=== PATIENT | female | born 1965 | race Caucasian/White ===

== ENCOUNTER → 2017-06-05 | Outpatient (CLI) | payer BC ==
--- NOTE | 2017-06-06 10:57 | MM ---
Reason for exam: screening (asymptomatic). Last mammogram was performed 1 year and 1 month ago. Physical Findings: A clinical breast exam by your physician is recommended on an annual basis and results should be correlated with mammographic findings. MG Screening Mammo w CAD Bilateral CC and MLO view(s) were taken. Prior study comparison: May 20, 2016, bilateral MG screening mammo w CAD. April 13, 2015, bilateral MG screening mammo w CAD. The breast tissue is almost entirely fat. Chronic stable scattered calcifications in the left breast. There is chronic nodularity in the left breast. No significant changes when compared with prior studies. ASSESSMENT: Benign, BI-RAD 2 RECOMMENDATION: Routine screening mammogram of both breasts in 1 year.
== END | disposition home or self-care (01) ==
LOC: RADMAMWWP 16:00
PROVIDERS: ATTEND Family Medicine
DX: Z12.31 Encounter for screening mammogram for malignant neoplasm of breast (principal)

== ENCOUNTER 2018-08-18 17:24 | Emergency (ER) | payer BC ==
[2018-08-18 17:29] VITALS: RESP 18
--- NOTE | 2018-08-18 18:37 | ED ---
General Adult HPI - General Chief complaint: ENT Stated complaint: ear pain Time Seen by Provider: 08/18/18 17:36 Source: patient, RN notes reviewed Mode of arrival: ambulatory Limitations: no limitations - History of Present Illness Initial comments: 53-year-old female presents to the emergency department for a chief complaint of left ear pain times one day. Patient states it started this morning and has worsened throughout the day. She describes it as a sharp pain in her left ear. Patient denies any tooth pain. She denies any sore throat. She denies any pain or swelling under the tongue. Patient denies any fevers or chills at home. She denies any congestion. Patient admits it is worsened with opening and closing her jaw. She denies any history of TMJ. Patient denies smoking. Patient is unsure what makes the pain better or worse. Patient has no other complaints at this time including shortness of breath, chest pain, abdominal pain, nausea or vomiting, headache, or visual changes. - Related Data Home Medications Medication Instructions Recorded Confirmed Furosemide 20 mg PO DAILY 06/26/15 06/26/15 Previous Rx's Medication Instructions Recorded Hydrocodone/Acetaminophen [Chelsea 1 each PO Q6HR PRN #20 tab 06/26/15 5-325] Acetaminophen-Codeine 300-30mg 1 tab PO Q8H PRN #10 tablet 08/18/18 [Tylenol #3] Allergies Allergy/AdvReac Type Severity Reaction Status Date / Time No Known Allergies Allergy Verified 08/18/18 17:28 Review of Systems ROS Statement: Those systems with pertinent positive or pertinent negative responses have been documented in the HPI. ROS Other: All systems not noted in ROS Statement are negative. Past Medical History Past Medical History: Diabetes Mellitus History of Any Multi-Drug Resistant Organisms: None Reported Past Surgical History: Cholecystectomy, Orthopedic Surgery, Tubal Ligation Additional Past Surgical History / Comment(s): left knee, left foot Past Psychological History: No Psychological Hx Reported Smoking Status: Former smoker Past Alcohol Use History: None Reported Past Drug Use History: None Reported General Exam Limitations: no limitations General appearance: alert, in no apparent distress Head exam: Present: atraumatic, normocephalic, normal inspection Eye exam: Present: normal appearance, PERRL, EOMI. Absent: scleral icterus, conjunctival injection, periorbital swelling ENT exam: Present: normal exam, normal oropharynx (No tenderness of the maxillary sinuses), mucous membranes moist, TM's normal bilaterally (Tympanic membranes normal bilaterally. No erythema, opacification, or bulging noted.), normal external ear exam (No tenderness to palpation of the tragus or pinna.), other (No tenderness of the parotid gland. Patient does have mild tenderness to the TMJ joint.) Neck exam: Present: normal inspection, full ROM. Absent: tenderness, meningismus, lymphadenopathy Respiratory exam: Present: normal lung sounds bilaterally. Absent: respiratory distress, wheezes, rales, rhonchi, stridor Cardiovascular Exam: Present: regular rate, normal rhythm, normal heart sounds. Absent: bradycardia, tachycardia, irregular rhythm Neurological exam: Present: alert, oriented X3, CN II-XII intact Psychiatric exam: Present: normal affect, normal mood Course Vital Signs 08/18/18 17:26 Temperature 98.3 F Pulse Rate 93 Respiratory 18 Rate Blood Pressure 151/85 O2 Sat by Pulse 96 Oximetry Medical Decision Making - Medical Decision Making 53-year-old female presents to the emergency department for a chief complaint of left ear pain times one day. Patient states it started this morning and then worsened in the day. She describes it as a sharp pain of the inner ear. Patient states his pain is worsened with opening and closing of her jaw. She denies congestion, fevers, sore throat. On exam patient has tenderness to the TMJ joint. No tenderness to the parotid gland. No evidence of pharyngitis, uvula midline, no evidence of peritonsillar abscess. Patient denies sore throat. No tenderness of anterior cervical lymph nodes. No tenderness with palpation and traction of the pinna and tragus. Left tympanic membrane is nonerythematous with no opacification or bulging noted. As patient does have tenderness of the TMJ joint as well as pain with opening and closing of the jaw it is likely that she has TMJ dysfunction. She was given pain medication for this. She was educated she can also take Motrin. She will follow up with primary care and ENT on Monday. She will return here if she has any worsening symptoms or fevers which she is aware of. Disposition Clinical Impression: Ear pain, left Disposition: HOME SELF-CARE Condition: Good Instructions: Temporomandibular Disorder (ED), Earache (ED) Additional Instructions: Please take pain medication as directed. Please monitor for any worsening symptoms or fevers and return if these occur. Otherwise follow-up with ENT on Monday. Prescriptions: Acetaminophen-Codeine 300-30mg [Tylenol #3] 1 tab PO Q8H PRN #10 tablet PRN Reason: Pain Is patient prescribed a controlled substance at d/c from ED?: No Referrals: Campbell Scott Jr, DO [Primary Care Provider] - 1-2 days Dave oMreira DO [Doctor of Osteopathic Medicine] - 1-2 days Time of Disposition: 18:35
[2018-08-18] MEDS ORDERED: ACET/COD 300 MG/30 MG STARTER PACK 6 TAB BTL PO STA (18:52)
[2018-08-18 18:58] VITALS: BP 131/81; PULSE 70; TEMP 98.2
== END 2018-08-18 18:57 | disposition home or self-care (01) ==
LOC: EC 17:24
DX: H92.02 Otalgia, left ear (principal); M26.629 Arthralgia of temporomandibular joint, unspecified side; Z87.891 Personal history of nicotine dependence; Z79.899 Other long term (current) drug therapy
CPT/HCPCS: 99282

== ENCOUNTER → 2018-09-12 | Outpatient (CLI) | payer BC ==
[2018-09-12 07:45] LABS: Basophils % (A) 0 %; Eosinophils # (A) 0.2 k/uL (0-0.7); Eosinophils % (A) 2 %; HGB 13.2 gm/dL (11.4-16.0); Lymphocytes # (A) 1.8 k/uL (1.0-4.8); Lymphocytes % (A) 28 %; MCH 31.6 pg (25.0-35.0); MCHC 33.8 g/dL (31.0-37.0); MCV 93.7 fL (80.0-100.0); Mean Platelet Volume 6.4; Monocytes # (A) 0.3 k/uL (0-1.0); Monocytes % (A) 5 %; Neutrophils # (A) 4.1 k/uL (1.3-7.7); Neutrophils % (A) 64 %; Platelet Count 236 k/uL (150-450); RBC 4.16 m/uL (3.80-5.40); RDW 13.7 % (11.5-15.5); WBC 6.4 k/uL (3.8-10.6)
[2018-09-12 11:10] LABS: Albumin 4.2 g/dL (3.80-4.90); Albumin/Globulin Ratio 2.1 (1.20-2.10); Anion Gap 8.7 mmol/L (4.00-12.00); Calcium 9.3 mg/dL (8.7-10.3); Carbon Dioxide 23.3 mmol/L (21.6-31.8); Potassium 4.2 mmol/L (3.5-5.5); Total Bilirubin 0.6 mg/dL (0.3-1.2); Total Protein 6.2 g/dL (6.2-8.2)
[2018-09-12 11:19] LABS: T4, Free (Free Thyroxine) 1.2 ng/dL (0.80-1.80)
[2018-09-12 13:14] LABS: Hemoglobin A1C 9.9 % (4.0-6.0)
== END ==
LOC: LABWHC1 06:35
PROVIDERS: ATTEND Nurse Practitioner Women's Health
DX: Z00.00 Encounter for general adult medical examination without abnormal findings (principal); I10 Essential (primary) hypertension; E11.9 Type 2 diabetes mellitus without complications; Z79.899 Other long term (current) drug therapy
CPT/HCPCS: 36415; 80053; 80061; 83036; 84439; 84443; 85025

== ENCOUNTER → 2018-11-20 | Outpatient (CLI) | payer BC ==
--- NOTE | 2018-11-22 09:55 | MM ---
Reason for exam: screening (asymptomatic). Last mammogram was performed 1 year and 5 months ago. Physical Findings: A clinical breast exam by your physician is recommended on an annual basis and results should be correlated with mammographic findings. MG Screening Mammo w CAD Bilateral CC and MLO view(s) were taken. Prior study comparison: June 05, 2017, bilateral MG screening mammo w CAD. May 20, 2016, bilateral MG screening mammo w CAD. The breast tissue is almost entirely fat. No significant changes when compared with prior studies. ASSESSMENT: Negative, BI-RAD 1 RECOMMENDATION: Routine screening mammogram of both breasts in 1 year.
== END | disposition home or self-care (01) ==
LOC: RADMAMWWP 16:01
PROVIDERS: ATTEND Family Medicine
DX: Z12.31 Encounter for screening mammogram for malignant neoplasm of breast (principal)
CPT/HCPCS: 77067

== ENCOUNTER → 2021-03-01 | Outpatient (CLI) | payer BC ==
--- NOTE | 2021-03-02 11:03 | MM ---
Reason for exam: screening (asymptomatic). Last mammogram was performed 2 years and 3 months ago. History: Patient is postmenopausal. Physical Findings: A clinical breast exam by your physician is recommended on an annual basis and results should be correlated with mammographic findings. MG Screening Mammo w CAD Bilateral CC and MLO view(s) were taken. Prior study comparison: November 20, 2018, bilateral MG screening mammo w CAD. June 05, 2017, bilateral MG screening mammo w CAD. The breast tissue is almost entirely fat. There are benign appearing round calcifications bilaterally. There is no discrete abnormality. ASSESSMENT: Benign, BI-RAD 2 RECOMMENDATION: Routine screening mammogram of both breasts in 1 year.
== END | disposition home or self-care (01) ==
LOC: RADMAMWWP 16:01
PROVIDERS: ATTEND Family Medicine
DX: Z12.31 Encounter for screening mammogram for malignant neoplasm of breast (principal); Z78.0 Asymptomatic menopausal state
CPT/HCPCS: 77067

== ENCOUNTER → 2022-03-22 | Outpatient (CLI) | payer BC ==
--- NOTE | 2022-03-23 09:20 | MM ---
Reason for Exam: Screening (asymptomatic). Last mammogram was performed 1 year(s) and 1 month(s) ago. Patient History: Menarche at age 11. First Full-Term at age 21. Postmenopausal. Risk Values: Dolores 5 year model risk: 1.3%. NCI Lifetime model risk: 7.7%. Prior Study Comparison: 06/05/2017 Bilateral Screening Mammogram, [facility]. 11/20/2018 Bilateral Screening Mammogram, [facility]. 03/01/2021 Bilateral Screening Mammogram, [facility]. Tissue Density: The breast tissue is almost entirely fat. Findings: Analyzed By CAD. There is no suspicious group of microcalcifications or new suspicious mass in either breast. Scattered benign calcifications noted. Overall Assessment: Benign, BI-RAD 2 Management: Screening Mammogram of both breasts in 1 year. A clinical breast exam by your physician is recommended on an annual basis and results should be correlated with mammographic findings. Electronically signed and approved by: Archie Petit M.D. Radiologis
== END | disposition home or self-care (01) ==
LOC: RADMAMWWP 07:39
PROVIDERS: ATTEND Family Medicine
DX: Z12.31 Encounter for screening mammogram for malignant neoplasm of breast (principal); Z78.0 Asymptomatic menopausal state
CPT/HCPCS: 77067

== ENCOUNTER → 2023-10-14 | Outpatient (CLI) | payer BC ==
--- NOTE | 2023-10-15 23:12 | MR ---
EXAMINATION TYPE: MR shoulder LT wo con DATE OF EXAM: 10/14/2023 COMPARISON: Left shoulder radiograph 10/11/2023 HISTORY: Left shoulder pain, limited ROM x 3 mos, no trauma. TECHNIQUE: Multiplanar, multisequence imaging of the left shoulder is performed without contrast. FINDINGS: SUPRASPINATUS: Slight bursal sided fraying of the supraspinatus superimposed on tendinosis. INFRASPINATUS: Intact. SUBSCAPULARIS: Intact. TERES MINOR: Intact. BICEPS: Increased signal of the intra-articular long head biceps tendon, relating to tendinosis.. Nor mal anchor in the supraglenoid tubercle. Extra-articular portion is appropriately positioned within t he bicipital groove. GLENOHUMERAL JOINT: Normal alignment and joint space. Normal cartilage. No effusion. ACROMIOCLAVICULAR JOINT: Undersurface osteophytic spurring which mildly narrows the subacromial space . No joint effusion. LABRUM: Normal, given the limitations of a non-arthrographic exam. SUBDELTOID BURSA: Normal. No increased fluid. MUSCLES: Normal. BONE MARROW: Normal. OTHER: No additional significant abnormality is appreciated. IMPRESSION: 1. Supraspinatus slight bursal sided fraying and tendinosis. 2. Long head biceps tendinosis. 3. AC joint osteoarthrosis.
== END | disposition home or self-care (01) ==
LOC: RADMRIMAIN 10-13 06:24
PROVIDERS: ATTEND Orthopaedic Surgery
DX: M67.814 Other specified disorders of tendon, left shoulder (principal); M19.012 Primary osteoarthritis, left shoulder

== ENCOUNTER → 2023-10-30 | Outpatient (CLI) | payer BC ==
[2023-10-30 15:53] LABS: Basophils # (A) 0.07 X 10*3/uL (0.00-0.10); Basophils % (A) 1.1 %; Eosinophils # (A) 0.14 X 10*3/uL (0.04-0.35); Eosinophils % (A) 2.1 %; HCT 43.2 % (37.2-46.3); Lymphocytes # (A) 2.28 X 10*3/uL (0.90-5.00); Lymphocytes % (A) 34.6 %; MCH 30.8 pg (27.0-32.0); MCHC 32.4 g/dL (32.0-37.0); MCV 95.2 FL (80.0-97.0); Mean Platelet Volume 10.1 FL (9.5-12.2); Monocytes # (A) 0.36 X 10*3/uL (0.20-1.00); Monocytes % (A) 5.5 %; NRBC Per 100 WBC 0 X 10*3/uL (0.00-0.01); Neutrophils # (A) 3.73 X 10*3/uL (1.80-7.70); Neutrophils % (A) 56.5 %; Platelet Count 205 X 10*3/uL (140-440); RBC 4.54 X 10*6/uL (4.10-5.20); RDW 12.9 % (11.5-14.5); WBC 6.59 X 10*3/uL (4.50-10.00)
[2023-10-30 16:28] LABS: Anion Gap 13.6 mmol/L (4.00-12.00); Carbon Dioxide 21.4 mmol/L (21.6-31.8); Potassium 4.4 mmol/L (3.5-5.5)
== END | disposition home or self-care (01) ==
LOC: LABPAT 09:41
PROVIDERS: ATTEND Orthopaedic Surgery
DX: Z01.818 Encounter for other preprocedural examination (principal); I45.10 Unspecified right bundle-branch block; I44.0 Atrioventricular block, first degree; M75.42 Impingement syndrome of left shoulder
CPT/HCPCS: 80051; 85025; 93005

== ENCOUNTER → 2023-11-10 | Outpatient (CLI) | payer BC ==
--- NOTE | 2023-11-10 09:09 | BD ---
EXAMINATION TYPE: Axial Bone Density DATE OF EXAM: 11/10/2023 CLINICAL HISTORY: 58 years old Female. ICD-10 CODE: Z78.0 ASYMPTOMATIC MENOPAUSAL Height: 63 in Weight: 235 lbs FRAX RISK QUESTIONS: Secondary Osteoporosis: 1. Type 1 Diabetes: yes RISK FACTORS HISTORY OF: MEDICATIONS: EXAM MEASUREMENTS: Bone mineral densitometry was performed using the Know[employer] System. Bone mineral density as measured about the Lumbar spine is: ----- L1-L4(G/cm2): 2.100 T Score Values are as follows: ----- L1: 6.3 ----- L2: 7.9 ----- L3: 7.8 ----- L4: 9.0 ----- L1-L4: 7.7 Z Score Values are as follows: ----- L1: 6.2 ----- L2: 7.8 ----- L3: 7.8 ----- L4: 8.9 ----- L1-L4: 7.6 Bone mineral density baseline Bone mineral density about the R hip (g/cm2): 1.405 Bone mineral density about the L hip (g/cm2): 1.466 T Score values are as follows: -----R Neck: 1.1 -----L Neck: 1.3 -----R Total: 3.2 -----L Total: 3.6 Z Score values are as follows: -----R Neck: 1.5 -----L Neck: 1.8 -----R Total: 3.2 -----L Total: 3.6 Bone mineral density baseline FRAX%s: The graph provided illustrates a 4.5% chance for a major osteoporotic fx and a 0.0% chance fo r the hips probability for fx in 10 years time. IMPRESSION: Normal (Values between +1 and -1 indicate normal bone mass). Consider repeating this study in 5 year s or sooner if there is some new clinical indication. NOTE: T-SCORE=SD OF THE YOUNG ADULT MEAN.
--- NOTE | 2023-11-10 16:25 | MM ---
Reason for Exam: Screening (asymptomatic). Last mammogram was performed 1 year(s) and 7 month(s) ago. Patient History: Menarche at age 11. First Full-Term at age 21. Postmenopausal. Risk Values: Dolores 5 year model risk: 1.3%. NCI Lifetime model risk: 7.6%. Prior Study Comparison: 05/20/2016 Bilateral Screening Mammogram, [facility]. 06/05/2017 Bilateral Screening Mammogram, [facility]. 11/20/2018 Bilateral Screening Mammogram, [facility]. 03/01/2021 Bilateral Screening Mammogram, [facility]. 03/22/2022 Bilateral MG screening mammo w CAD, [facility]. Tissue Density: The breast tissue is heterogeneously dense. This may lower the sensitivity of mammography. Findings: Analyzed By CAD. There is no suspicious group of microcalcifications or new suspicious mass. Benign-appearing calcifications bilaterally. Overall Assessment: Benign, BI-RAD 2 Management: Screening Mammogram of both breasts in [address] [facility] will attempt to contact patient to return for supplemental views and ultrasound if indicated. Patient should continue monthly self-breast exams. A clinical breast exam by your physician is recommended on an annual basis. This exam should not preclude additional follow-up of suspicious palpable abnormalities. Note on Dolores scores and lifetime risk: 1. A Dolores score greater than 3% is considered moderate risk. If this is the case, consider specialist referral to assess eligibility for a risk reducing agent. 2. If overall lifetime risk for the development of breast cancer is 20% or higher, the patient may qualify for future screening with alternating mammogram and breast MRI. Electronically signed and approved by: Huber Calderon DO
== END | disposition home or self-care (01) ==
LOC: RADBDWWP 06:55
PROVIDERS: ATTEND Family Medicine
DX: Z12.31 Encounter for screening mammogram for malignant neoplasm of breast (principal); Z78.0 Asymptomatic menopausal state
CPT/HCPCS: 77067; 77080

== ENCOUNTER 2023-11-15 05:39 | Day surgery (SDC) | payer BC ==
[2023-11-10 09:08] VITALS: BMI 41.6
--- NOTE | 2023-11-14 21:10 | HP ---
HISTORY AND PHYSICAL DATE OF SURGERY: 11/15/2023. HISTORY OF PRESENT ILLNESS: Shannan Bautista is a 58-year-old patient seen with progressive left shoulder pain. We discussed treatment options. She elected to proceed with left shoulder arthroscopy. Consent was obtained. PAST MEDICAL HISTORY: Wab-zvdkebz-wtkdxdkmv diabetes. PAST SURGICAL HISTORY: Noncontributory. DAILY MEDICATIONS: 1. Metformin. 2. Mounjaro. 3. Tylenol. ALLERGIES: None. SOCIAL HISTORY: She denies tobacco use. PHYSICAL EVALUATION OF THE LEFT SHOULDER: Flexion is 90 degrees, abduction is 60 degrees. External rotation is 50 degrees with some pain and weakness. She is tender along the anterolateral acromion and rotator cuff insertion. Impingement is positive at 70 degrees. Drop-arm sign is positive. Distal neurovascular exam is intact. RADIOGRAPHS: Left shoulder type 2 acromion, acromioclavicular joint osteoarthritis, a calcific body consistent with calcific tendinitis. MRI of left shoulder, partial rotator cuff tendon tear, bicipital tendinosis, acromioclavicular joint osteoarthritis. IMPRESSION: 1. Left shoulder impingement with partial rotator cuff tear. 2. Left shoulder acromioclavicular joint osteoarthritis. 3. Left shoulder bicipital tendinitis. 4. Ehn-lwdxkfw-yimkackjk diabetes. PLAN: Left shoulder arthroscopy with subacromial decompression, arthroscopic rotator cuff repair, Jarrod procedure, and biceps tenodesis. MMODL / IJN: [id number] /
[2023-11-15] MEDS ORDERED: LACTATED RINGERS 1,000 ML IV SCH (06:12)
[2023-11-15] MEDS ORDERED: ONDANSETRON 4 MG/2 ML VIAL IVP ONE (06:12)
[2023-11-15] MEDS ORDERED: DEXAMETHASONE SOD PHOSPHATE 4 MG/ML 1 ML VIAL IV ONE (06:12)
[2023-11-15] MEDS ORDERED: MIDAZOLAM 2 MG/2 ML VIAL IVP ONE (06:53)
[2023-11-15] MEDS ORDERED: fentaNYL (PF) 50 MCG/ML 2 ML AMP IVP ONE (06:53)
[2023-11-15] MEDS ORDERED: HYDROmorphone 0.5 MG/0.5 ML SYRINGE IVP PRN (07:00)
[2023-11-15 07:10] LABS: Glucose,Whole Blood 202 mg/dL (70-110)
[2023-11-15] MEDS ORDERED: SUCCINYLCHOLINE CHLORIDE 200 MG/10 ML VIAL IV ONE (07:25)
[2023-11-15] MEDS ORDERED: ROPIVACAINE 5 MG/ML 30 ML VIAL ONE (07:25)
[2023-11-15] MEDS ORDERED: LIDOCAINE 1%-EPI 1:100,000 20 ML VIAL ONE (07:25)
[2023-11-15] MEDS ORDERED: LIDOCAINE 1% INJ 10MG/ML (20 ML MDV) ONE (07:25)
[2023-11-15] MEDS ORDERED: PROPOFOL 10 MG/ML 20 ML VIAL IV ONE (07:25)
[2023-11-15] MEDS ORDERED: fentaNYL (PF) 50 MCG/ML 2 ML AMP ONE (07:25)
[2023-11-15] MEDS ORDERED: KETOROLAC 15 MG/ML 1 ML VIAL ONE (07:25)
--- NOTE | 2023-11-15 07:25 | P.ANPRN ---
Procedure Note - Anesthesia - Nerve Block Performed Left Interscalene Single Time Out Performed: Yes Date of Procedure: 11/15/23 Procedure Start Time: 06:52 Procedure Stop Time: 06:59 Location of Patient: PreOp Indication: Acute Post-Operative Pain, Requested by Surgeon Sedation Type: Sedate with meaningful contact maintained Preparation: Sterile Prep Position: Supine Needle Types: Pajunk Needle Gauge: 21 Ultrasound used to visualize needle placement: Yes Ultrasound used to observe medication spread: Yes Injectate: 0.5% Ropivacaine (see comment for volume) (10 ml + 10 ml lidocaine 1% with epi 1/200K) Blood Aspirated: No Pain Paresthesia on Injection Noted: No Resistance on Injection: Normal Image Stored and Saved: Yes Events: Uneventful and Well Tolerated
--- NOTE | 2023-11-15 09:19 | P.OP ---
Date of Procedure: 11/15/23 Preoperative Diagnosis: Left shoulder impingement Postoperative Diagnosis: 1. Left shoulder rotator cuff tear 2. Left shoulder impingement 3. Left shoulder acromioclavicular joint osteoarthritis Procedure(s) Performed: 1. Left shoulder arthroscopic rotator cuff repair 2. Left shoulder arthroscopic subacromial decompression 3. Left shoulder arthroscopic Jarrod procedure Implants: 1Arthrex 6.25 swivel lock anchor Anesthesia: GETA, regional (Interscalene block) Surgeon: Jamal Cano Data Processing Manager #1: Brent Guevara Estimated Blood Loss (ml): 8 Pathology: none sent Condition: stable Disposition: PACU Indications for Procedure: 58-year-old patient seen with progressive left shoulder pain. After treatment options were discussed, she elected to proceed with arthroscopy. Operative Findings: See description of procedure Description of Procedure: Patient underwent an interscalene block by department of anesthesia. The patient was then taken to the operative suite. The patient underwent a general anesthetic by the department of anesthesia. The patient was placed into a lateral position and secured. There was appropriate padding of the bony prominence. Left shoulder was then prepped and draped in normal sterile orthopedic fashion. We placed the extremity in 10 pounds of longitudinal traction. A posterior incision was now made for a posterior working portal site. The trocar and cannula were inserted into the glenohumeral joint. Arthroscopy was initiated. Spinal needle was now inserted anteriorly, to ascertain the anterior working portal site. An incision was now made in that area, a trocar was inserted followed by a probe. There was some superficial tearing of the superior labrum. Long head biceps appeared intact without evidence for any hyperemia. There were grade I chondromalacia changes of humeral head. I debrided out the superficial labral tear. I again probed the residual labrum and it was stable. Instruments were now removed from the glenohumeral joint. Utilizing the posterior working portal site, the trocar and cannula were inserted into the subacromial space. Arthroscopy initiated. I made an incision 2 fingerbreadths lateral to the acromion. I introduced my trocar followed by my ArthroCare ablator. I now began ablating thick subacromial bursal tissue, which exposed the undersurface of the anterior acromion. There was diminished subacromial space. There was a very prominent anterior acromion. A motorized bur was introduced and a subacromial decompression was performed. I also excised some osteophytes off the inferior aspect of the distal clavicle. The AC joint was visualized and noted to be fairly arthritic. The motorized bur was introduced in the anterior portal site and a Jarrod procedure was performed without difficulty removing about 8 mm off the distal clavicle, decompressing the AC joint nicely. I turned my attention to the rotator cuff. There was a 1.5 cm rotator cuff tear involving the posterior aspect of the distal supraspinatus. I debrided the margins getting down to stable tendon tissue. The tear measured under 2 cm. It was freely mobile over the footprint. With the assistance of Bettie MARION I passed 3 inverted mattress sutures through good bites of rotator cuff tendon. I punched a hole in the footprint area for insertion of an anchor. All 6 limbs of suture were passed through the eyelet of an Arthrex 4.75 swivel lock anchor. When I placed that into the hole when I began inserting the anchor the bone around that area collapse. The anchor was now removed. I now chose a Arthrex 6.25 swivel lock anchor. All 6 limbs were passed through the eyelet. I placed the eyelet into the prepunched hole. I held into position while Ronal MARION tensioned all 6 limbs of suture and deployed the anchor. We had good fixation.. All residual suture limbs were now clipped. We had good compression of the tendon along the entire footprint. Instruments now removed from the port al sites. All portal sites were approximated with nylon suture. Sterile dressings were applied followed by a shoulder immobilizer. Brent MARION assisted in this complex case. The patient was awakened, transferred to a bed, and taken to recovery in stable condition.
[2023-11-15 09:29] LABS: Glucose,Whole Blood 193 mg/dL (70-110)
[2023-11-15 09:32] VITALS: TEMP 97.2
[2023-11-15 10:29] VITALS: RESP 16
[2023-11-15 10:59] VITALS: BP 116/75; PULSE 71
== END 2023-11-15 11:36 | disposition home or self-care (01) ==
LOC: OR 05:39
PROVIDERS: ATTEND Orthopaedic Surgery
DX: M75.42 Impingement syndrome of left shoulder (principal); M75.112 Incomplete rotator cuff tear or rupture of left shoulder, not specified as traumatic; M19.012 Primary osteoarthritis, left shoulder; G89.18 Other acute postprocedural pain; E11.9 Type 2 diabetes mellitus without complications; M25.712 Osteophyte, left shoulder; M75.22 Bicipital tendinitis, left shoulder; Z79.84 Long term (current) use of oral hypoglycemic drugs; Z79.899 Other long term (current) drug therapy
CPT/HCPCS: 64415; 29827; 29826; 29824; C1713 ×2; J2250; J0690; J2405; J3010

== ENCOUNTER 2024-02-28 07:46 | Inpatient (IN) | payer BC ==
[2024-02-28] MEDS: SODIUM CHLORIDE 0.9% 1,000 ML IV STA (08:38)
[2024-02-28] MEDS: ONDANSETRON 4 MG/2 ML VIAL IVP STA (08:39)
[2024-02-28 08:56] LABS: Basophils # (A) 0.1 k/uL (0-0.2); Basophils % (A) 0 %; Eosinophils # (A) 0.1 k/uL (0-0.7); Eosinophils % (A) 1 %; HCT 42.3 % (34.0-46.0); HGB 14.2 gm/dL (11.4-16.0); Lymphocytes # (A) 1.3 k/uL (1.0-4.8); Lymphocytes % (A) 12 %; MCH 31.2 pg (25.0-35.0); MCHC 33.6 g/dL (31.0-37.0); MCV 92.8 fL (80.0-100.0); Monocytes # (A) 0.4 k/uL (0-1.0); Monocytes % (A) 3 %; Neutrophils % (A) 83 %; Platelet Count 152 k/uL (150-450); RBC 4.56 m/uL (3.80-5.40); RDW 14.2 % (11.5-15.5); WBC 10.9 k/uL (3.8-10.6)
[2024-02-28 09:17] LABS: INR 1.1 (<1.2); Partial Thromboplastin Time 22.8 sec (22.0-30.0); Prothrombin Time 11.5 sec (10.0-12.5)
--- NOTE | 2024-02-28 09:17 | XR ---
EXAMINATION TYPE: XR chest 2V DATE OF EXAM: 02/28/2024 COMPARISON: None HISTORY: 58 year-old female shortness of breath, difficulty breathing TECHNIQUE: PA and lateral views FINDINGS: Heart normal size. Aorta and pulmonary vasculature within normal limits. Mild interstitial prominence without consolidation or pleural effusion. IMPRESSION: Mild interstitial prominence could reflect bronchitis or asthma. Otherwise, no acute process seen.
[2024-02-28] MEDS ORDERED: HEPARIN SODIUM 1,000 UN/ML (10ML VL) IV PRN (09:27)
[2024-02-28 10:04] LABS: ALT 19 U/L (4-34); AST 25 U/L (14-36); African American GFR (CKD) 89 (>60 ml/min/1.73 sqM); Alkaline Phosphatase 112 U/L (38-126); Anion Gap 13 mmol/L; Blood Urea Nitrogen 16 mg/dL (7-17); Calcium 8.7 mg/dL (8.4-10.2); Carbon Dioxide 16 mmol/L (22-30); Chloride 109 mmol/L (98-107); Glucose 261 mg/dL (74-99); Magnesium 1.5 mg/dL (1.6-2.3); Non-African American GFR(CKD) 77 (>60 ml/min/1.73 sqM); Potassium 3.9 mmol/L (3.5-5.1); Sodium 138 mmol/L (137-145); Total Bilirubin 1.3 mg/dL (0.2-1.3); Total Protein 7.4 g/dL (6.3-8.2)
[2024-02-28] MEDS: HEPARIN SODIUM 1,000 UN/ML (10ML VL) IV ONE (10:10)
[2024-02-28] MEDS: HEPARIN SOD,PORK IN 0.45% NACL 25,000 UNIT in 0.45% NACL 1 250ML.BAG IV SCH ×3 (10:11→18:53)
[2024-02-28 10:13] LABS: NT-Pro-B-Type Natriuretic Pept 3270 pg/mL
--- NOTE | 2024-02-28 10:45 | CT ---
EXAMINATION TYPE: CT chest angio for PE DATE OF EXAM: 02/28/2024 COMPARISON: None HISTORY: PE, Hypoxia, Positive D-dimer (29.89) CT DLP: 436.8 mGycm CONTRAST: CT chest with contrast and 3D reconstruction with MIP imaging is performed without and with IV Contra st, patient injected with 100 ml mL of Isovue 370. Contrast-enhanced CT of the chest was performed through the course of the pulmonary arteries with jia g and mediastinal window settings submitted. 3D reconstruction with MIP imaging was also performed. PULMONARY ARTERIES: There is saddle embolism noted within the main pulmonary arteries with thrombus e xtending into the lower and upper lobe segmental and subsegmental branches compatible with at least m oderate PE burden. There is flattening of the interventricular septum with mild reflux into the infer ior vena cava. Right heart strain cannot be excluded. No evidence for pulmonary infarct at this time. LUNGS: The lungs are clear and free of infiltrate. No evidence for atelectasis. No pulmonary nodule or mass is detected. No pleural effusion. MEDIASTINUM: Thoracic aorta is of normal caliber. No evidence for mediastinal mass. No mediastinal lymph nodes greater than 1cm. HILAR STRUCTURES: No evidence for mass. No hilar lymph nodes greater than 1 cm. UPPER ABDOMEN: No significant abnormality is seen. IMPRESSION: 1. There is saddle embolism noted within the main pulmonary arteries with thrombus extending into th e lower and upper lobe segmental and subsegmental branches compatible with at least moderate PE burde n. There is flattening of the interventricular septum with mild reflux into the inferior vena cava. R ight heart strain cannot be excluded. Findings discussed with ER physician at time of exam completion .
--- NOTE | 2024-02-28 11:11 | ED ---
General Adult HPI - General Chief complaint: Nausea/Vomiting/Diarrhea Stated complaint: Vomitting, chest pain Time Seen by Provider: 02/28/24 07:59 Source: patient, RN notes reviewed Mode of arrival: wheelchair Limitations: no limitations - History of Present Illness Initial comments: 58-year-old female presents emergency department chief complaint of nausea vomiting and shortness of breath. Patient states that since the weekend she started having nausea vomiting and noticed that she felt short of breath she states that she felt her heart racing and did have some discomfort at that time. She states that she was trying to walk into the hospital this morning when she had aches Reem exertional dyspnea she states she needed a wheelchair at that elsie e. She fell like her heart was racing and that she could not walk any further. She does admit that she had recent shoulder surgery for her rotator cuff. She denies any leg pain or leg swelling no history of DVT or PE she does admit that she is a type II diabetic she states she feels very thirsty, dehydrated. She reports possible fever she had multiple sick contacts at work. - Related Data Home Medications Medication Instructions Recorded Confirmed Atorvastatin [Lipitor] 40 mg PO DAILY 11/10/23 02/28/24 Empagliflozin/Metformin HCl 2 tab PO DAILY 11/10/23 02/28/24 [Synjardy 12.5-500 mg Tablet] Tirzepatide [Mounjaro] 12.5 mg SQ SA 11/10/23 02/28/24 Metoprolol Tartrate [Lopressor] 25 mg PO DAILY 02/28/24 02/28/24 Allergies Allergy/AdvReac Type Severity Reaction Status Date / Time No Known Allergies Allergy Verified 02/28/24 10:01 Review of Systems ROS Statement: Those systems with pertinent positive or pertinent negative responses have been documented in the HPI. ROS Other: All systems not noted in ROS Statement are negative. Past Medical History Past Medical History: Diabetes Mellitus History of Any Multi-Drug Resistant Organisms: None Reported Past Surgical History: Cholecystectomy, Orthopedic Surgery, Tubal Ligation Additional Past Surgical History / Comment(s): left knee, left foot Past Psychological History: No Psychological Hx Reported Past Alcohol Use History: None Reported Past Drug Use History: None Reported General Exam Limitations: no limitations General appearance: alert, in distress Head exam: Present: atraumatic, normocephalic, normal inspection Eye exam: Present: normal appearance, PERRL, EOMI. Absent: scleral icterus, conjunctival injection, periorbital swelling ENT exam: Present: mucous membranes dry. Absent: mucous membranes moist Neck exam: Present: normal inspection. Absent: tenderness, meningismus, lymphadenopathy Respiratory exam: Present: normal lung sounds bilaterally. Absent: respiratory distress, wheezes, rales, rhonchi, stridor Cardiovascular Exam: Present: normal rhythm, tachycardia, normal heart sounds. Absent: systolic murmur, diastolic murmur, rubs, gallop, clicks GI/Abdominal exam: Present: soft, normal bowel sounds. Absent: distended, tende rness, guarding, rebound, rigid Extremities exam: Present: other (Pedal pulses equal bilaterally). Absent: pedal edema, calf tenderness Neurological exam: Present: alert, oriented X3, CN II-XII intact Course Vital Signs 02/28/24 02/28/24 02/28/24 07:51 09:31 09:45 Temperature 98.1 F Pulse Rate 124 H 101 H Respiratory 16 24 Rate Blood Pressure 128/87 110/76 O2 Sat by Pulse 97 93 L 83 L Oximetry 02/28/24 02/28/24 10:00 10:13 Temperature Pulse Rate 100 Respiratory 24 Rate Blood Pressure 111/82 O2 Sat by Pulse 98 98 Oximetry - Reevaluation(s) Reevaluation #1: 02/28/24 11:10 Discussed the case with Dr. Mcdonald who recommended heparin, echocardiogram and bilateral lower extremity ultrasound in which these were ordered. Reevaluation #2: 02/28/24 11:10 Discussed the case with Dr. Murphy who accepts admission pending pulmonary and vascular recommendations Reevaluation #3: 02/28/24 11:10 Dr. Culver is paged pending callback for ICU admission EKG Findings - EKG Comments: EKG Findings:: EKG performed at 8: 04 sinus tachycardia with a rate of 117 LA 169 QRS 126 QT/QTc 383/453 noted diffuse inverted T waves - EKG Results: EKG: interpreted by ERMD Procedures - [place] Protocol (Time Out) Nurse: Janet Camargo Medical Decision Making - Medical Decision Making Was pt. sent in by a medical professional or institution (, PA, POULTRY HUSBANDRY TEACHER, urgent care, hospital, or detention...) When possible be specific @ -No Did you speak to anyone other than the patient for history (EMS, parent, family, police, friend...)? What history was obtained from this source @ -No Did you review nursing and triage notes (agree or disagree)? Why? @ -I reviewed and agree with nursing and triage notes Were old charts reviewed (outside hosp., previous admission, EMS record, old EKG, old radiological studies, urgent care reports/EKG's, detention records)? Report findings @ -No old charts were reviewed Differential Diagnosis (chest pain, altered mental status, abdominal pain women, abdominal pain men, vaginal bleeding, weakness, fever, dyspnea, syncope, headache, dizziness, GI bleed, back pain, seizure, CVA, palpatations, mental health, musculoskeletal)? @ -Differential Dyspnea: Coronary syndrome, arrhythmia, tamponade, asthma, COPD, pulmonary embolism, pneumonia, pneumothorax, pulmonary effusion, anaphylaxis, diabetic ketoacidosis, flailed chest, pulmonary contusion, diaphragmatic rupture, anemia, neuromuscular, this is not meant to be an all-inclusive list. EKG interpreted by me (3pts min.). @ -As above X-rays interpreted by me (1pt min.). @ -Chest ray shows no acute cardiopulmonary process CT interpreted by me (1pt min.). @ -CT angio chest shows large saddle PE with possible heart strain U/S interpreted by me (1pt. min.). @ -None done What testing was considered but not performed or refused? (CT, X-rays, U/S, labs )? Why? @ -None What meds were considered but not given or refused? Why? @ -None Did you discuss the management of the patient with other professionals (professionals i.e. , PA, POULTRY HUSBANDRY TEACHER, lab, RT, psych nurse, social worker school, pantry goods worker, teacher, head correction officer, case coordinator)? Give summary @ -I did get the case with vascular, internal medicine, pulmonary for admission with possible EKOS along with further treatment and management Was smoking cessation discussed for >3mins.? @ -No Was critical care preformed (if so, how long)? @ -35 minutes Were there social determinants of health that impacted care today? How? (Homelessness, low income, unemployed, alcoholism, drug addiction, transportation, low edu. Level, literacy, decrease access to med. care, longterm, rehab)? @ -No Was there de-escalation of care discussed even if they declined (Discuss DNR or withdrawal of care, Hospice)? DNR status @ -No What co-morbidities impacted this encounter? (DM, HTN, Smoking, COPD, CAD, Cancer, CVA, ARF, Chemo, Hep., AIDS, mental health diagnosis, sleep apnea, morbid obesity)? @ -Diabetes is Was patient admitted / discharged? Hospital course, mention meds given and route, prescriptions, significant lab abnormalities, going to OR and other pertinent info. @ -Admitted for treatment and possible intervention of saddle PE with heart strain echocardiogram was ordered, patient was really put on heparin high-dose as concern for PE 1 D-dimer was elevated at 29 along with current symptoms. Patient was given fluid bolus for dehydration, breathing treatment. She did become hypoxic in which patient was placed on oxygen. She did respond to this she has no hypotension. Patient will continue heparin, oxygen, pending echocardiogram for possible intervention Undiagnosed new problem with uncertain prognosis? @ -No Drug Therapy requiring intensive monitoring for toxicity (Heparin, Nitro, Insulin, Cardizem)? @ -Heparin Were any procedures done? @ -No Diagnosis/symptom? @ -Saddle pulmonary embolism Acute, or Chronic, or Acute on Chronic? @ -Acute Uncomplicated (without systemic symptoms) or Complicated (systemic symptoms)? @ -Complicated Side effects of treatment? @ -No Exacerbation, Progression, or Severe Exacerbation? @ -No Poses a threat to life or bodily function? How? (Chest pain, [place], [place], pneumonia, PE, COPD, DKA, ARF, appy, cholecystitis, CVA, Diverticulitis, Homicidal, Suicidal, threat to staff... and all critical care pts) @ -Yes large PE could cause cardiac arrest - Lab Data Result diagrams: 02/28/24 08:43 02/28/24 08:43 Lab Results 02/28/24 02/28/24 02/28/24 Range/Units 08:43 08:43 08:43 WBC 10.9 H (3.8-10.6) k/uL RBC 4.56 (3.80-5.40) m/uL Hgb 14.2 (11.4-16.0) gm/dL Hct 42.3 (34.0-46.0) % MCV 92.8 (80.0-100.0) fL MCH 31.2 (25.0-35.0) pg MCHC 33.6 (31.0-37.0) g/dL RDW 14.2 (11.5-15.5) % Plt Count 152 (150-450) k/uL MPV 8.0 Neutrophils % 83 % Lymphocytes % 12 % Monocytes % 3 % Eosinophils % 1 % Basophils % 0 % Neutrophils # 9.0 H (1.3-7.7) k/uL Lymphocytes # 1.3 (1.0-4.8) k/uL Monocytes # 0.4 (0-1.0) k/uL Eosinophils # 0.1 (0-0.7) k/uL Basophils # 0.1 (0-0.2) k/uL PT 11.5 (10.0-12.5) sec INR 1.1 (<1.2) APTT 22.8 (22.0-30.0) sec D-Dimer 29.89 H (<0.60) mg/L FEU Sodium 138 (137-145) mmol/L Potassium 3.9 (3.5-5.1) mmol/L Chloride 109 H (98-107) mmol/L Carbon Dioxide 16 L (22-30) mmol/L Anion Gap 13 mmol/L BUN 16 (7-17) mg/dL Creatinine 0.84 (0.52-1.04) mg/dL Est GFR (CKD-EPI)AfAm 89 (>60 ml/min/1.73 sqM) Est GFR (CKD-EPI)NonAf 77 (>60 ml/min/1.73 sqM) Glucose 261 H (74-99) mg/dL Plasma Lactic Acid Gregory (0.7-2.0) mmol/L Calcium 8.7 (8.4-10.2) mg/dL Magnesium 1.5 L (1.6-2.3) mg/dL Total Bilirubin 1.3 (0.2-1.3) mg/dL AST 25 (14-36) U/L ALT 19 (4-34) U/L Alkaline Phosphatase 112 (38-126) U/L Troponin I (0.000-0.034) ng/mL NT-Pro-B Natriuret Pep 3270 pg/mL Total Protein 7.4 (6.3-8.2) g/dL Albumin 4.0 (3.5-5.0) g/dL 02/28/24 02/28/24 Range/Units 08:43 08:43 WBC (3.8-10.6) k/uL RBC (3.80-5.40) m/uL Hgb (11.4-16.0) gm/dL Hct (34.0-46.0) % MCV (80.0-100.0) fL MCH (25.0-35.0) pg MCHC (31.0-37.0) g/dL RDW (11.5-15.5) % Plt Count (150-450) k/uL MPV Neutrophils % % Lymphocytes % % Monocytes % % Eosinophils % % Basophils % % Neutrophils # (1.3-7.7) k/uL Lymphocytes # (1.0-4.8) k/uL Monocytes # (0-1.0) k/uL Eosinophils # (0-0.7) k/uL Basophils # (0-0.2) k/uL PT (10.0-12.5) sec INR (<1.2) APTT (22.0-30.0) sec D-Dimer (<0.60) mg/L FEU Sodium (137-145) mmol/L Potassium (3.5-5.1) mmol/L Chloride (98-107) mmol/L Carbon Dioxide (22-30) mmol/L Anion Gap mmol/L BUN (7-17) mg/dL Creatinine (0.52-1.04) mg/dL Est GFR (CKD-EPI)AfAm (>60 ml/min/1.73 sqM) Est GFR (CKD-EPI)NonAf (>60 ml/min/1.73 sqM) Glucose (74-99) mg/dL Plasma Lactic Acid Gregory 2.6 H* (0.7-2.0) mmol/L Calcium (8.4-10.2) mg/dL Magnesium (1.6-2.3) mg/dL Total Bilirubin (0.2-1.3) mg/dL AST (14-36) U/L ALT (4-34) U/L Alkaline Phosphatase (38-126) U/L Troponin I 0.152 H* (0.000-0.034) ng/mL NT-Pro-B Natriuret Pep pg/mL Total Protein (6.3-8.2) g/dL Albumin (3.5-5.0) g/dL Critical Care Time Critical Care Time: Yes Total Critical Care Time: 35 Disposition Clinical Impression: Saddle pulmonary embolus Disposition: ADMITTED IP TO THIS HOSP Referrals: Caleb Concepcion MD [Primary Care Provider] - 1-2 days Time of Disposition: 11:09
[2024-02-28] MEDS ORDERED: ACETAMINOPHEN TAB 325 MG TAB PO PRN (11:15)
[2024-02-28] MEDS ORDERED: NALOXONE 0.4 MG/ML 1 ML VIAL IV PRN (11:15)
[2024-02-28] MEDS ORDERED: ONDANSETRON 4 MG/2 ML VIAL IVP PRN (11:15)
[2024-02-28] MEDS ORDERED: DEXTROSE 50% SYRINGE 50 ML IVP PRN ×2 (11:20)
[2024-02-28] MEDS: PANTOPRAZOLE 40 MG/10 ML VIAL IVP SCH (12:08)
--- NOTE | 2024-02-28 12:09 | P.GSCN ---
History of Present Illness Consult date: 02/28/24 Reason for Consult: Saddle pulmonary embolism Requesting physician: Vernon Cyr History of present illness: This is a pleasant 58-year-old female who presented to the emergency department today with complaints of shortness of breath especially dyspnea on exertion. , Patient has past medical history including diabetes mellitus. Patient states she started coming down with cough congestion and diarrhea and Monday. She states many people at work had been recently sick. She started getting short of breath on Monday and feeling that she had her heart racing and thought she was actually having a heart attack. She states over the last couple days her dyspnea on exertion has become severe. She presented for further evaluation. She had blood work showing elevated D-dimer at 29.8, elevated lactic acid as well as elevated troponin at 0.152. She had a CT angiogram of the chest reporting saddle embolus with concerns for right heart strain. Vascular surgery was consulted for pulmonary embolism. Patient states she has had no previous history of deep vein thrombosis, pulmonary embolism, clotting disorders and states she is a non-smoker. She did however have left shoulder rotator cuff surgery 11/15/2023. She denies any lower extremity swelling or pain other than her normal in her feet as she stands all day for work. On presentation she appears short of breath, she has been tachycardic, blood pressures have been stable. Her oxygen saturation was 93 to 97% on room air, she is now on 3 L nasal cannula and saturating at 98%. Echocardiogram was just completed, pending results. She denies any previous history of bleeding disorders, no history of brain bleed or aneurysm, no recent surgery less than 2 weeks, and no recent GI bleeds or history of GI bleed. She currently denies any chest pain, she does have shortness of breath, no abdominal pain, nausea or vomiting. She is afebrile. Review of Systems A 14 point review systems was completed all pertinent positives and negatives as stated in the HPI. Past Medical History Past Medical History: Diabetes Mellitus History of Any Multi-Drug Resistant Organisms: None Reported Past Surgical History: Cholecystectomy, Orthopedic Surgery, Tubal Ligation Additional Past Surgical History / Comment(s): left knee, left foot Past Psychological History: No Psychological Hx Reported Past Alcohol Use History: None Reported Past Drug Use History: None Reported Medications and Allergies Home Medications Medication Instructions Recorded Confirmed Type Atorvastatin [Lipitor] 40 mg PO DAILY 11/10/23 02/28/24 History Empagliflozin/Metformin HCl 2 tab PO DAILY 11/10/23 02/28/24 History [Synjardy 12.5-500 mg Tablet] Tirzepatide [Mounjaro] 12.5 mg SQ SA 11/10/23 02/28/24 History Metoprolol Tartrate [Lopressor] 25 mg PO DAILY 02/28/24 02/28/24 History Allergies Allergy/AdvReac Type Severity Reaction Status Date / Time No Known Allergies Allergy Verified 02/28/24 10:01 Surgical - Exam Vital Signs Temp Pulse Resp BP Pulse Ox 98.1 F 124 H 16 128/87 97 02/28/24 07:51 02/28/24 07:51 02/28/24 07:51 02/28/24 07:51 02/28/24 07:51 General appearance: The patient is alert, oriented, appears in no acute distress. HET: Head is normocephalic and atraumatic. Pupils are equal and reactive. Neck: Supple. Heart: Regular. Lungs: Equal expansion, normal respiratory effort. Abdomen: Soft, nontender, nondistended. Extremities: Normal skin color and turgor. No lower extremity edema. Neurological: No focal deficits. Strength and sensation are grossly intact. Results - Labs 02/28/24 08:43 02/28/24 08:43 Abnormal Lab Results - Last 24 Hours (Table) 02/28/24 02/28/24 02/28/24 Range/Units 08:43 08:43 08:43 WBC 10.9 H (3.8-10.6) k/uL Neutrophils # 9.0 H (1.3-7.7) k/uL D-Dimer 29.89 H (<0.60) mg/L FEU Chloride 109 H (98-107) mmol/L Carbon Dioxide 16 L (22-30) mmol/L Glucose 261 H (74-99) mg/dL Plasma Lactic Acid Gregory (0.7-2.0) mmol/L Magnesium 1.5 L (1.6-2.3) mg/dL Troponin I (0.000-0.034) ng/mL 02/28/24 02/28/24 Range/Units 08:43 08:43 WBC (3.8-10.6) k/uL Neutrophils # (1.3-7.7) k/uL D-Dimer (<0.60) mg/L FEU Chloride (98-107) mmol/L Carbon Dioxide (22-30) mmol/L Glucose (74-99) mg/dL Plasma Lactic Acid Gregory 2.6 H* (0.7-2.0) mmol/L Magnesium (1.6-2.3) mg/dL Troponin I 0.152 H* (0.000-0.034) ng/mL Diabetes panel 02/28/24 Range/Units 08:43 Sodium 138 (137-145) mmol/L Potassium 3.9 (3.5-5.1) mmol/L Chloride 109 H (98-107) mmol/L Carbon Dioxide 16 L (22-30) mmol/L BUN 16 (7-17) mg/dL Creatinine 0.84 (0.52-1.04) mg/dL Glucose 261 H (74-99) mg/dL Calcium 8.7 (8.4-10.2) mg/dL AST 25 (14-36) U/L ALT 19 (4-34) U/L Alkaline Phosphatase 112 (38-126) U/L Total Protein 7.4 (6.3-8.2) g/dL Albumin 4.0 (3.5-5.0) g/dL Calcium panel 02/28/24 Range/Units 08:43 Calcium 8.7 (8.4-10.2) mg/dL Albumin 4.0 (3.5-5.0) g/dL Pituitary panel 02/28/24 Range/Units 08:43 Sodium 138 (137-145) mmol/L Potassium 3.9 (3.5-5.1) mmol/L Chloride 109 H (98-107) mmol/L Carbon Dioxide 16 L (22-30) mmol/L BUN 16 (7-17) mg/dL Creatinine 0.84 (0.52-1.04) mg/dL Glucose 261 H (74-99) mg/dL Calcium 8.7 (8.4-10.2) mg/dL Adrenal panel 02/28/24 Range/Units 08:43 Sodium 138 (137-145) mmol/L Potassium 3.9 (3.5-5.1) mmol/L Chloride 109 H (98-107) mmol/L Carbon Dioxide 16 L (22-30) mmol/L BUN 16 (7-17) mg/dL Creatinine 0.84 (0.52-1.04) mg/dL Glucose 261 H (74-99) mg/dL Calcium 8.7 (8.4-10.2) mg/dL Total Bilirubin 1.3 (0.2-1.3) mg/dL AST 25 (14-36) U/L ALT 19 (4-34) U/L Alkaline Phosphatase 112 (38-126) U/L Total Protein 7.4 (6.3-8.2) g/dL Albumin 4.0 (3.5-5.0) g/dL - Imaging Comments: Chest x-ray reports mild interstitial prominence could reflect bronchitis or asthma. Otherwise no acute process seen. Chest CT angiogram reports saddle embolism noted within the main pulmonary ar teries with thrombus extending into the lower and upper lobe segmental and subsegmental branches compatible with at least moderate pulmonary embolism burden. There is flattening of the interventricular septum with mild reflux into the inferior vena cava. Right heart strain cannot be excluded. Findings discussed with the ER physician at time of exam completion. This was independently reviewed by Dr. Mcdonald that feels there is evidence of right heart strain on CT angiogram is well as mild reflux into inferior vena cava. Assessment and Plan Assessment: 1. Saddle pulmonary embolism with concern for right heart strain 2. Shortness of breath 3. Elevated troponins 4. Diabetes mellitus 5. History of left rotator cuff surgery 11/15/2023 Plan: 1. Continue symptomatic and supportive care 2. Continue IV heparin drip 3. Keep n.p.o. 4. Stat echocardiogram ordered, currently pending 5. Obtain type and screen 6. Patient is scheduled for EKOS procedure. Procedure discussed with patient and family who is at the bedside. Including risks and benefits. Patient is agreeable to proceed. Will plan for this afternoon. 7. The rest of medical management per primary medical team Thank you for this consultation, we will continue to follow. The impression and plan of care has been dictated as directed. I performed a history and examination of this patient, discussed the same with the dictator. I agree with the dictator's note ,documented as a scribe. Any additional findings or plans will be noted.
[2024-02-28 12:39] LABS: Glucose,Whole Blood 164 mg/dL (70-110)
--- NOTE | 2024-02-28 12:41 | CA ---
Transthoracic Echo Report Name: Shannan Bautista Age: 58 Gender: F : 1965 Exam Date: 02/28/2024 11:03 Exam Location: [facility] Ht (in): 66 Wt (lb): 227 Ordering Physician: Nieves Meraz Attending/Referring Phys: Movie Operator Miriam Orellana RDCS Procedure CPT: Indications: Pulmonary embolism,evaluate for right heart strain Cardiac Hx: Technical Quality: Technically difficult study Contrast 1: Definity Total Dose (mL): 2 Contrast 2: Total Dose (mL): MEASUREMENTS (Male / Female) Normal Values 2D ECHO LV Diastolic Diameter PLAX 1.7 cm 4.2 - 5.9 / 3.9 - 5.3 cm LV Systolic Diameter PLAX 1.1 cm IVS Diastolic Thickness 1.5 cm 0.6 - 1.0 / 0.6 - 0.9 cm LVPW Diastolic Thickness 1.6 cm 0.6 - 1.0 / 0.6 - 0.9 cm LV Relative Wall Thickness 1.7 RV Internal Dim ED PLAX 4.2 cm LA Volume 43.7 cm??? 18 - 58 / 22 - 52 cm??? LA Volume Index 19.6 cm???/m??? 16 - 28 cm???/m??? M-MODE Aortic Root Diameter MM 2.8 cm LA Systolic Diameter MM 4.5 cm LA Ao Ratio MM 1.6 DOPPLER AV Peak Velocity 127.9 cm/s AV Peak Gradient 6.5 mmHg AV Mean Velocity 98.9 cm/s AV Mean Gradient 4.1 mmHg AV Velocity Time Integral 19.6 cm LVOT Peak Velocity 69.7 cm/s LVOT Peak Gradient 1.9 mmHg LVOT Velocity Time Integral 16.2 cm MV Area PHT 3.6 cm??? Mitral E Point Velocity 44.9 cm/s Mitral A Point Velocity 76.7 cm/s Mitral E to A Ratio 0.6 MV Deceleration Time 212.0 ms TR Peak Velocity 348.1 cm/s TR Peak Gradient 48.5 mmHg Right Ventricular Systolic Press 53.5 mmHg FINDINGS Left Ventricle Left ventricular cavity size normal. Normal left ventricular systolic function with no obvious regional wall motion abnormalities. Left ventricular ejection fraction is estimated at 55-60 %. Septal hypertrophy Right Ventricle Severe right ventricular dilatation. Reduced right ventricular global systolic function. Moderate pulmonary hypertension. Right ventricular systolic pressure estimated at 54mm hg. TAPSE 22mm and RV S'wave 11cm/sec. Right Atrium Right atrium not well visualized. Left Atrium Normal left atrial size. Mitral Valve Structurally normal mitral valve. No mitral stenosis, regurgitation or prolapse. Aortic Valve No aortic valve stenosis or regurgitation. Tricuspid Valve Structurally normal tricuspid valve. Moderate tricuspid regurgitation. Pulmonic Valve Pulmonic valve not well visualized. Pericardium No pericardial effusion. Aorta Normal size aortic root and proximal ascending aorta. CONCLUSIONS Technically difficult study. Definity ECHO contrast used for improved visualization of the endocardial borders (inadequate visualization of two or more contiguous segments). Normal limits for size and systolic function Dilated right ventricle with severe global hypokinesis and moderate pulmonary hypertension Moderate tricuspid regurgitation Previewed by: Dr. Silvestre Myers MD (Electronically Signed) Final Date: 28 Feb 2024 12:41
[2024-02-28] MEDS: INSULIN ASPART (NovoLOG) 100 UNIT/ML VIAL SQ SCH (12:43)
--- NOTE | 2024-02-28 12:44 | US ---
EXAMINATION TYPE: US venous doppler duplex LE BI DATE OF EXAM: 02/28/2024 12:28 PM COMPARISON: 2009; CT angio for PE 02/28/24 CLINICAL INDICATION: Female, 58 years old with history of PE; SIDE PERFORMED: Bilateral TECHNIQUE: The lower extremity deep venous system is examined utilizing real time linear array sonog jeffrey with graded compression, doppler sonography and color-flow sonography. VESSELS IMAGED: Common Femoral Vein Deep Femoral Vein Greater Saphenous Vein * Femoral Vein Popliteal Vein Small Saphenous Vein * Proximal Calf Veins (* superficial vessels) Right Leg: Negative for DVT Left Leg: Positive for DVT within the popliteal vein. All other veins in the left lower extremity ar e compressible and patent. *Limited visibility of the bilateral GSV/CFV due to small size of vessels. IMPRESSION: Left-sided popliteal vein DVT is suspected.
--- NOTE | 2024-02-28 13:40 | P.HPIM ---
History of Present Illness H&P Date: 02/28/24 Chief Complaint: Chest pain This is a 58-year-old female with past medical history significant for morbid obesity, recent left rotator cuff surgery with Dr. Cano October, with currently possible frozen shoulder-following closely with Dr. Cano, presented to the ER with complaints of worsening shortness of breath, cough, congestion, diarrhea since Monday. Initially she felt as if she was coming down with the same illness that her coworkers had. Monday symptoms progressed, started having palpitations, increased shortness of breath. Stated she was too weak to call her primary's office to get in for further evaluation. This morning was the first time she felt able to go outside and proceeded to the ER. Afebrile, WBC 10.9. Troponin elevated, 0.152 , EKG reported sinus tachycardia, right bundle branch block, T wave abnormalities in, D-dimer elevated 29.8,chest CTA reported saddle embolism noted within the main pulmonary arteries with thrombus extending into the lower and upper lobe segmental and subsegmental branches compatible with at least moderate pulmonary embolism burden. There is flattening of the interventricular septum with mild reflux into the inferior vena cava. Right heart strain cannot be excluded. Echo, venous Doppler ordered. Anticoagulated on heparin drip. Magnesium 1.5, supplements ordered.L actic acid elevated, 2.6. proBNP 3270. Bicarb 16, BUN 16, creatinine 0.84. Denies history of GI bleed,clotting disorder, prior DVT or PEs. Denies nicotine dependence. On admission tachycardic with heart rate 124, blood pressure stable, O2 sats of high 90s on room air, desatted to low 80s on room air, currently requiring 3 L nasal cannula to maintain O2 sats in the 90s. Review of Systems ROS Statement: Those systems with pertinent positive or pertinent negative responses have been documented in the HPI. ROS Other: All systems not noted in ROS Statement are negative. Past Medical History Past Medical History: Diabetes Mellitus History of Any Multi-Drug Resistant Organisms: None Reported Past Surgical History: Cholecystectomy, Orthopedic Surgery, Tubal Ligation Additional Past Surgical History / Comment(s): left knee, left foot Past Psychological History: No Psychological Hx Reported Past Alcohol Use History: None Reported Past Drug Use History: None Reported Medications and Allergies Home Medications Medication Instructions Recorded Confirmed Type Atorvastatin [Lipitor] 40 mg PO DAILY 11/10/23 02/28/24 History Empagliflozin/Metformin HCl 2 tab PO DAILY 11/10/23 02/28/24 History [Synjardy 12.5-500 mg Tablet] Tirzepatide [Mounjaro] 12.5 mg SQ SA 11/10/23 02/28/24 History Metoprolol Tartrate [Lopressor] 25 mg PO DAILY 02/28/24 02/28/24 History Allergies Allergy/AdvReac Type Severity Reaction Status Date / Time No Known Allergies Allergy Verified 02/28/24 10:01 Physical Exam Vitals: Vital Signs Temp Pulse Resp BP Pulse Ox 02/28/24 12:09 93 22 111/71 96 02/28/24 10:13 100 24 111/82 98 02/28/24 10:00 98 02/28/24 09:45 83 L 02/28/24 09:31 101 H 24 110/76 93 L 02/28/24 07:51 98.1 F 124 H 16 128/87 97 Intake and Output 02/27/24 02/28/24 02/28/24 22:59 06:59 14:59 Other: Weight 102.965 kg PHYSICAL EXAM: VITAL SIGNS: [As above] GENERAL: Well-nourished, sitting up at side of stretcher, alert and oriented x 3,NAD HEENT: Normocephalic, atraumatic, conjunctivae normal. eyes normal. NECK: Supple, no JVD. CARDIOVASCULAR: S1, S2 regular. No murmur RESPIRATION: Equal air entry, normal respiratory effort, breath sounds diminished in the bases. No rhonchi or crackles. ABDOMEN: Soft, nondistended, nontender . No guarding. Positive bowel sounds heard. LEGS: No edema. no swelling NERVOUS SYSTEM: Cranial N 2-12 grossly normal. No focal deficits. Strength and sensation grossly intact. Skin: Warm and dry, no rash Results CBC & Chem 7: 02/28/24 08:43 02/28/24 08:43 Labs: Abnormal Lab Results - Last 24 Hours (Table) 02/28/24 02/28/24 02/28/24 Range/Units 08:43 08:43 08:43 WBC 10.9 H (3.8-10.6) k/uL Neutrophils # 9.0 H (1.3-7.7) k/uL D-Dimer 29.89 H (<0.60) mg/L FEU Chloride 109 H (98-107) mmol/L Carbon Dioxide 16 L (22-30) mmol/L Glucose 261 H (74-99) mg/dL Plasma Lactic Acid Gregory (0.7-2.0) mmol/L Magnesium 1.5 L (1.6-2.3) mg/dL Troponin I (0.000-0.034) ng/mL 02/28/24 02/28/24 Range/Units 08:43 08:43 WBC (3.8-10.6) k/uL Neutrophils # (1.3-7.7) k/uL D-Dimer (<0.60) mg/L FEU Chloride (98-107) mmol/L Carbon Dioxide (22-30) mmol/L Glucose (74-99) mg/dL Plasma Lactic Acid Gregory 2.6 H* (0.7-2.0) mmol/L Magnesium (1.6-2.3) mg/dL Troponin I 0.152 H* (0.000-0.034) ng/mL Assessment and Plan Assessment: Saddle PE, right heart strain cannot be excluded Elevated troponin Lactic acidosis Acute hypoxic respiratory failure secondary to all the above Recent left rotator cuff, 11/15/[address] Cano Morbid obesity, BMI 37 Diabetes mellitus Hypomagnesemia Plan: Continue on current medication regimen ,monitoring and symptomatic treatment. Anticoagulate on heparin drip .echo .venous Doppler pending. Per vascular surgeon review of CTA, evidence of right heart strain present,patient is scheduled for EKOS this afternoon. Prognosis guarded given multiple complex medical issues. The impression and plan of care has been dictated as directed. : I performed a history and examination of this patient, discussed the same with the dictator. I agree with the dictator's note ,documented as a scribe. Any additional findings or plans will be noted.
[2024-02-28] MEDS ORDERED: LIDOCAINE 1% INJ 10MG/ML (20 ML MDV) ONE (14:08)
--- NOTE | 2024-02-28 15:21 | P.OP ---
Date of Procedure: 02/28/24 Description of Procedure: Preoperative diagnosis: Submassive bilateral pulmonary emboli Postoperative diagnosis: Same Procedure: #1 ultrasound-guided right common femoral vein access of central venous catheters -2 #2 bilateral selective pulmonary angiogram #3 Initiation of pulmonary pharmacal mechanical thrombolysis with EKOS Surgeon: Candace Mcdonald D.O. EBL: Less than 10 mL IV fluids: See records Urine output: See records Drains: None Complications: None immediately apparent Condition: Stable to ICU Operative indication and findings: Patient is a 58-year-old female who presented to the hospital with severe shortness of breath. On workup and evaluation she was found to have saddle pulmonary embolism with evidence of submassive features on both CT scan and laboratories. Due to this the decision was made to take her for more urgent interventions with tPA thrombolysis. Risks and benefits were discussed. She seems understand and is willing to proceed. Procedure in detail: [The patient was taken to the radiology suite and placed in supine position. Bilateral groins are prepped and draped in usual sterile fashion. A preprocedure timeout was performed, all parties were in agreement. The right common femoral vein was identified and found to be compressible without any evidence of visible thrombus. The skin overlying was anesthetized 1% lidocaine plain. A multipurpose needle was used and the vein was accessed and a wire was placed. This was done again through a separate access site. 2, 6-Serbian sheaths were placed. Using catheters and wires the right and left pulmonary arteries were accessed. Pulmonic angiograms were performed confirming positioning. An EKOS ultrasonic pharmacomechanical infusion catheter was placed and confirmed appropriate positioning within the pulmonary arteries. 2 mg of TPA was placed in each catheter. The catheters were hooked up to appropriate fluid infusions for the Gillett II protocol for submassive pulmonary emboli. The sheaths were sutured in place. Dressing was placed. The patient was transferred back to ICU in stable condition having tolerated the procedure well.
[2024-02-28 15:26] LABS: Glucose,Whole Blood 166 mg/dL (70-110)
[2024-02-28] MEDS: SODIUM CHLORIDE 0.9% 1,000 ML IV SCH ×5 (18:50→20:36)
[2024-02-28] MEDS: ALTEPLASE 6 MG in SODIUM CHLORIDE 0.9% 144 ML IV ONE ×2 (18:51→18:52)
[2024-02-28] MEDS: MAGNESIUM SULFATE-D5W PMX 1 GM in DEXTROSE/WATER 1 100ML.BAG IVPB SCH (19:51)
[2024-02-28 20:48] LABS: Basophils % (A) 0 %; Eosinophils % (A) 1 %; HCT 37.4 % (34.0-46.0); Lymphocytes % (A) 24 %; MCH 30.6 pg (25.0-35.0); MCHC 32.2 g/dL (31.0-37.0); MCV 95.2 fL (80.0-100.0); Monocytes # (A) 0.4 k/uL (0-1.0); Monocytes % (A) 4 %; Neutrophils # (A) 5.8 k/uL (1.3-7.7); Neutrophils % (A) 69 %; Platelet Count 138 k/uL (150-450); RBC 3.93 m/uL (3.80-5.40); RDW 13.8 % (11.5-15.5); WBC 8.4 k/uL (3.8-10.6)
[2024-02-29] LABS: Glucose,Whole Blood 204 mg/dL (70-110)
--- NOTE | 2024-02-29 01:45 | P.CNPUL ---
History of Present Illness Consult date: 02/29/24 Requesting physician: Vernon Cyr Reason for consult: other (Saddle pulmonary emboli status post EKOS) Chief complaint: Shortness of breath and chest pain History of present illness: Patient is a 58-year-old white female with past medical history significant for diabetes mellitus, hypertension, hyperlipidemia, obesity, and recent surgery for rotator cuff repair in October of this year. 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 Starting Monday she started having symptoms, which she originally attributed to a cold. The symptoms included shortness of breath especially on exertion, some nonproductive coughing, and nausea and vomiting. She also had a fever reportedly of 101 F. On Monday, she noted some significant shortness of breath when walking from her bedroom to the back room. She was having some chest pain at this time, so she went to lay down for a couple hours. Symptoms reportedly improved, and she did reportedly return to work the following week. Yesterday, 02/28/2024, she went to work she was feeling very fatigued. She forgot her purse in the car, and went to go get her purse developing some severe shortness of breath and substernal nonradiating chest pain. She states that her heart was racing and she was lightheaded. Did not lose consciousness. She laid on the ground. She did not call 911. She then drove herself to the hospital that morning. On arrival to the emergency room, she was hypoxic on room air and tachycardic. EKG showed sinus tachycardia with a rate of 117 bpm. There was a right bundle branch block. Troponin 0.152. NT proBNP 3270. Initial chest x-ray shows some mild interstitial prominence. No acute infiltrates, pleural effusions, pneumothoraces. Follow-up chest CTA done on admission showed bilateral saddle pulmonary embolism within the main pulmonary arteries with thrombus extending into the lower and upper lobe segmental and subsegmental branches compatible with at least moderate PE burden. There was flattening of the interventricular septum with mild reflux into the inferior vena cava. Right heart strain could not be excluded. Follow-up echocardiogram was technically a difficult study. There was a dilated right ventricle with severe global hypokinesis and moderate pulmonary hypertension as well as moderate tricuspid regurgitation. CBC on arrival was unremarkable. D-dimer was 29. Most recent fibrinogen 432. CMP on arrival: Sodium 138, potassium 3.9, chloride 109, serum bicarb 16, BUN 16, creatinine 0.84, glucose 261. Lactic acid level 2.6 down to 1.9. LFTs not elevated. Normal saline infusing at 35 MLS per hour. She was taken to the [facility] by vascular surgery yesterday, and had an EKOS catheter placed for clot directed thrombolytics. Bilateral sheath access sites without hematomas and now no wheezing. Neurovascular status of bilateral lower extremities intact. Following insertion the patient was transferred to the intensive care unit for monitoring. Patient is currently lying supine in bed, on 2 L/min nasal cannula, in no acute respiratory distress. SpO2 is reading 99%. Blood pressure is normotensive without any vasopressor support. Heart rhythm appears normal sinus on bedside monitor, with a rate ranging from mid 80s to 90s. EKOS catheter still in place. Thrombolytics have finished. There is heparin infusing through catheters for patency. She denies any further shortness of breath, heart palpitations, or chest pain. Denies having any lower extremity swelling prior to this hospitalization. Venous Doppler of bilateral lower extremities did demonstrate a left-sided popliteal vein DVT. Patient admits to recent rotator cuff surgery October of this year. No other precipitating factors such as prolonged travel, trauma, personal or familial history of blood clots. Review of Systems REVIEW OF SYSTEMS: CONSTITUTIONAL: Denies any recent significant weight loss or weight gain. EYES: Denies change in vision. EARS, NOSE, MOUTH, THROAT: Denies headaches, denies sore throat. CARDIOVASCULAR: See HPI. RESPIRATORY: Admits shortness of breath, nonproductive cough as described in HPI. Denies any hemoptysis, sputum production, chest congestion. GASTROINTESTINAL: Denies change in appetite, abdominal pain, or diarrhea. Nausea and vomiting has subsided. GENITOURINARY: Denies hematuria, denies infections. MUSKULOSKELETAL: Denies pain, denies swelling. INTEGUMENTARY: Denies rash, denies eczema. NEUROLOGICAL: Denies recent memory loss, no recent seizure activity. PSYCHIATRIC: Denies anxiety, denies depression. HEMATOLOGIC/LYMPHATIC: Denies anemia, denies enlarged lymph node Past Medical History Past Medical History: Diabetes Mellitus History of Any Multi-Drug Resistant Organisms: None Reported Past Surgical History: Cholecystectomy, Orthopedic Surgery, Tubal Ligation Additional Past Surgical History / Comment(s): left knee, left foot Smoking Status: Never smoker Medications and Allergies Home Medications Medication Instructions Recorded Confirmed Type Atorvastatin [Lipitor] 40 mg PO DAILY 11/10/23 02/28/24 History Empagliflozin/Metformin HCl 2 tab PO DAILY 11/10/23 02/28/24 History [Synjardy 12.5-500 mg Tablet] Tirzepatide [Mounjaro] 12.5 mg SQ SA 11/10/23 02/28/24 History Metoprolol Tartrate [Lopressor] 25 mg PO DAILY 02/28/24 02/28/24 History Allergies Allergy/AdvReac Type Severity Reaction Status Date / Time No Known Allergies Allergy Verified 02/28/24 10:01 Physical Exam Vitals: Vital Signs Temp Pulse Resp BP Pulse Ox 02/29/24 00:00 98.3 F 93 19 127/81 99 02/28/24 23:00 90 24 120/74 98 02/28/24 22:00 97 15 130/73 98 02/28/24 21:00 87 22 119/66 99 02/28/24 20:00 96 24 148/72 97 02/28/24 19:00 87 22 148/72 99 02/28/24 18:00 87 14 128/80 98 02/28/24 17:00 89 17 106/64 98 02/28/24 16:00 98.0 F 91 24 103/70 98 02/28/24 15:22 93 9 L 02/28/24 13:52 89 22 106/65 98 02/28/24 12:49 98 22 97/73 98 02/28/24 12:09 93 22 111/71 96 02/28/24 10:13 100 24 111/82 98 02/28/24 10:00 98 02/28/24 09:45 83 L 02/28/24 09:31 101 H 24 110/76 93 L 02/28/24 07:51 98.1 F 124 H 16 128/87 97 Intake and Output 02/28/24 02/28/24 02/29/24 14:59 22:59 06:59 Intake Total 1197.309 315 Output Total 0 Balance 1197.309 315 Intake: IV 1020.0 315 Alteplase 6 mg In Sodium 100 Chloride 0.9% 144 ml @ 1 MG/HR 25 mls/hr IV .Q6H ONE Rx#:[id number] Alteplase 6 mg In Sodium 100 Chloride 0.9% 144 ml @ 1 MG/HR 25 mls/hr IV .Q6H ONE Rx#:[id number] Heparin Sod,Pork in 0.45% 10.0 NaCl 25,000 unit In 0.45 % NaCl 1 250ml.bag @ 2.5 mls/hr IV .Q24H TU Rx#: [id number] Heparin Sod,Pork in 0.45% 10.0 NaCl 25,000 unit In 0.45 % NaCl 1 250ml.bag @ 2.5 mls/hr IV .Q24H TU Rx#: [id number] Magnesium Sulfate-D5w Pmx 100 1 gm In Dextrose/Water 1 100ml.bag @ 100 mls/hr IVPB Q1H TU Rx#: [id number] Sodium Chloride 0.9% 1, 210 35 000 ml @ 35 mls/hr IV . Q24H TU Rx#:[id number] Sodium Chloride 0.9% 1, 210 70 000 ml @ 35 mls/hr IV . Q24H TU Rx#:[id number] Sodium Chloride 0.9% 1, 70 70 000 ml @ 35 mls/hr IV . Q24H TU Rx#:[id number] Sodium Chloride 0.9% 1, 105 70 000 ml @ Per Protocol IV .Q0M TU Rx#:[id number] Sodium Chloride 0.9% 1, 105 70 000 ml @ Per Protocol IV .Q0M TU Rx#:[id number] Intake, IV Titration 177.309 Amount Heparin Sod,Pork in 0.45% 177.309 NaCl 25,000 unit In 0.45 % NaCl 1 250ml.bag @ 18 UNITS/KG/HR 18.534 mls/hr IV .[id number] TU Rx#: [id number] Output: Urine 0 Other: Voiding Method External Catheter External Catheter # Voids 0 Weight 102.965 kg 102.965 kg GENERAL EXAM: Alert, 58-year-old obese white female, lying supine, comfortable in no apparent distress. EKOS machine is at bedside. HEAD: Normocephalic and atraumatic EYES: Normal reaction of pupils, equal size. NOSE: Clear with pink turbinates. THROAT: No erythema or exudates. NECK: No masses, no JVD. CHEST: No chest wall deformity. LUNGS: Equal air entry with no crackles, wheeze, rhonchi or dullness. On 2 L/min nasal cannula. SpO2 99%. No conversational dyspnea or accessory muscle use.. CVS: S1 and S2 normal with no audible murmur, regular rhythm. No extra heart sounds ABDOMEN: No hepatosplenomegaly, active bowel sounds, no guarding or rigidity. SPINE: No scoliosis or deformity SKIN: No rashes CENTRAL NERVOUS SYSTEM: No focal deficits, tone is normal in all 4 extremities. EXTREMITIES: There is no peripheral edema, clubbing, or cyanosis. Peripheral pulses are intact. Bilateral femoral sheath access sites clean, dry, without oozing or hematoma. Neurovascular status of bilateral lower extremities is intact. Results - Laboratory Findings CBC and BMP: 02/28/24 20:39 02/28/24 08:43 PT/INR, D-dimer PT 11.5 sec (10.0-12.5) 02/28/24 08:43 INR 1.1 (<1.2) 02/28/24 08:43 D-Dimer 29.89 mg/L FEU (<0.60) H 02/28/24 08:43 Abnormal lab findings: Abnormal Labs 02/28/24 02/28/24 02/28/24 08:43 08:43 08:43 WBC 10.9 H Plt Count Neutrophils # 9.0 H Fibrinogen D-Dimer 29.89 H Chloride 109 H Carbon Dioxide 16 L Glucose 261 H POC Glucose (mg/dL) Plasma Lactic Acid Gregory Magnesium 1.5 L Troponin I 02/28/24 02/28/24 02/28/24 08:43 08:43 12:38 WBC Plt Count Neutrophils # Fibrinogen D-Dimer Chloride Carbon Dioxide Glucose POC Glucose (mg/dL) 164 H Plasma Lactic Acid Gregory 2.6 H* Magnesium Troponin I 0.152 H* 02/28/24 02/28/24 02/28/24 13:01 15:25 20:39 WBC Plt Count 138 L Neutrophils # Fibrinogen 523 H D-Dimer Chloride Carbon Dioxide Glucose POC Glucose (mg/dL) 166 H Plasma Lactic Acid Gregory Magnesium Troponin I 02/28/24 23:58 WBC Plt Count Neutrophils # Fibrinogen D-Dimer Chloride Carbon Dioxide Glucose POC Glucose (mg/dL) 204 H Plasma Lactic Acid Gregory Magnesium Troponin I - Diagnostic Findings Chest x-ray: image reviewed CT scan - chest: image reviewed Assessment and Plan Assessment: Submassive bilateral saddle pulmonary emboli status/post EKOS directed thrombolytics. Chest CTA done on admission showed bilateral saddle pulmonary embolism within the main pulmonary arteries with thrombus extending into the lower and upper lobe segmental and subsegmental branches compatible with at least moderate PE burden. There was flattening of the interventricular septum with mild reflux into the inferior vena cava. There was concern for right-sided heart strain. Followed up with transthoracic echocardiogram. EKOS machine remains at bedside, thrombolytics are infused. Heparin continues for catheter patency. Acute hypoxemic respiratory failure, secondary to above Recent history of left rotator cuff repair October,. Noted as possible inciting event. Left popliteal DVT, as noted on venous Doppler History of diabetes mellitus type 2 History of hypertension History of hyperlipidemia Obesity, with a BMI of 36.6 kg/m Never tobacco smoker Plan: Patient's medications, labs, imaging were reviewed Patient is currently on 2 L/min nasal cannula, and this will likely easily be weaned off. SpO2 is 99%. Patient is status post EKOS directed thrombolytics. EKOS machine remains at bedside. Continue per protocol. Monitor neurovascular status of lower extremities. Monitor for bleeding. Possible inciting event was surgery earlier this year. No other precipitating factors such as trauma, prolonged travel, or family/personal history of blood clots. Patient will eventually be transitioned to DOAC, maintained outpatient for 3-6 months Will continue to monitor in the intensive care unit overnight. Patient was counseled on the importance of alerting first responders, especially with her presenting symptoms We will continue to follow I have personally seen and examined the patient, performed the documentation and the assessment and plan as written. Number of minutes spent on the visit:20 Time with Patient: Greater than 30
[2024-02-29 05:05] LABS: Basophils % (A) 0 %; Eosinophils # (A) 0.1 k/uL (0-0.7); Eosinophils % (A) 1 %; HCT 34.9 % (34.0-46.0); HGB 11.3 gm/dL (11.4-16.0); Lymphocytes # (A) 1.7 k/uL (1.0-4.8); Lymphocytes % (A) 21 %; MCH 30.8 pg (25.0-35.0); MCHC 32.4 g/dL (31.0-37.0); MCV 95.1 fL (80.0-100.0); Mean Platelet Volume 9.3; Monocytes # (A) 0.5 k/uL (0-1.0); Monocytes % (A) 6 %; Neutrophils # (A) 5.7 k/uL (1.3-7.7); Neutrophils % (A) 70 %; Platelet Count 127 k/uL (150-450); RBC 3.67 m/uL (3.80-5.40); RDW 14.3 % (11.5-15.5)
[2024-02-29 05:20] LABS: African American GFR (CKD) >90 (>60 ml/min/1.73 sqM); Anion Gap 6 mmol/L; Blood Urea Nitrogen 11 mg/dL (7-17); Calcium 7.7 mg/dL (8.4-10.2); Carbon Dioxide 19 mmol/L (22-30); Chloride 113 mmol/L (98-107); Glucose 145 mg/dL (74-99); Magnesium 1.8 mg/dL (1.6-2.3); Non-African American GFR(CKD) >90 (>60 ml/min/1.73 sqM); Potassium 3.8 mmol/L (3.5-5.1); Sodium 138 mmol/L (137-145)
[2024-02-29] MEDS ORDERED: Potassium Replacement Protocol 1 EACH MISC MISCELLANE PRN (05:35)
[2024-02-29] MEDS ORDERED: Magnesium Replacement Protocol 1 EACH MISC MISCELLANE PRN (05:35)
[2024-02-29] MEDS: POTASSIUM CHLORIDE 10 MEQ in WATER FOR INJECTION 1 100ML.BAG IVPB SCH (05:54)
[2024-02-29] MEDS: MAGNESIUM SULFATE-D5W PMX 1 GM in DEXTROSE/WATER 1 100ML.BAG IVPB ONE (05:58)
[2024-02-29 06:06] LABS: Glucose,Whole Blood 172 mg/dL (70-110)
[2024-02-29] MEDS: BENZOCAINE/MENTHOL LOZENG 1 EACH LOZENGE MUCOUS MEM PRN (09:00)
--- NOTE | 2024-02-29 11:37 | P.PN ---
Subjective Progress Note Date: 02/29/24 02/28/2024 this is a 58-year-old female with past medical history significant for morbid obesity, recent left rotator cuff surgery with Dr. Cano October, with currently possible frozen shoulder-following closely with Dr. Cano, presented to the ER with complaints of worsening shortness of breath, cough, congestion, diarrhea since Monday. Initially she felt as if she was coming down with the same illness that her coworkers had. Monday symptoms progressed, started having palpitations, increased shortness of breath. Stated she was too weak to call her primary's office to get in for further evaluation. This morning was the first time she felt able to go outside and proceeded to the ER. Denies prolonged travel, trauma or genetic history of clotting disorder. Afebrile, WBC 10.9. Troponin elevated, 0.152 , EKG reported sinus tachycardia, right bundle branch block, T wave abnormalities in, D-dimer elevated 29.8,chest CTA reported saddle embolism noted within the main pulmonary arteries with thrombus extending into the lower and upper lobe segmental and subsegmental branches compatible with at least moderate pulmonary embolism burden. There is flattening of the interventricular septum with mild reflux into the inferior vena cava. Right heart strain cannot be excluded. Echo, venous Doppler ordered. Anticoagulated on heparin drip. Magnesium 1.5, supplements ordered.L actic acid elevated, 2.6. proBNP 3270. Bicarb 16, BUN 16, creatinine 0.84. Denies history of GI bleed,clotting disorder, prior DVT or PEs. Denies nicotine dependence. On admission tachycardic with heart rate 124, blood pressure stable, O2 sats of high 90s on room air, desatted to low 80s on room air, currently requiring 3 L nasal cannula to maintain O2 sats in the 90s. 02/29/2024 status post EKOS with intravascular thrombolytics, currently in the ICU. Thrombolytics completed, catheters discontinued. denies numbness or tingling of extremities.Maintaining O2 sats in the high 90s on 2 L nasal cannula. Normotensive without pressor support. Hemoglobin 11.3, platelets 127. Venous Doppler reported left-sided popliteal vein DVT suspected. Blood sugars better controlled this morning, hemoglobin A1c 7.1. Afebrile, normal WBC. Denies any chest pain, palpitations or shortness of breath. Magnesium increased to 1.8, post supplementation. transitioning to DOAC this morning as per vascular surgery. Objective - Vital Signs Vital signs: Vital Signs Temp 98.4 F 02/29/24 08:00 Pulse 87 02/29/24 09:00 Resp 24 02/29/24 09:00 BP 149/83 02/29/24 09:00 Pulse Ox 98 02/29/24 09:00 FiO2 Intake & Output 02/28/24 02/29/24 02/29/24 18:59 06:59 18:59 Intake Total 375.0 2422.309 525 Output Total 0 420 100 Balance 375.0 2002.309 425 Weight 102.965 kg 108.1 kg Intake: IV 375.0 2245.0 525 Alteplase 6 mg In Sodium 75 25 Chloride 0.9% 144 ml @ 1 MG/HR 25 mls/hr IV .Q6H [facility] Rx#:[id number] Alteplase 6 mg In Sodium 75 25 Chloride 0.9% 144 ml @ 1 MG/HR 25 mls/hr IV .Q6H [facility] Rx#:[id number] Heparin Sod,Pork in 0.45% 7.5 2.5 NaCl 25,000 unit In 0.45 % NaCl 1 250ml.bag @ 2.5 mls/hr IV .Q24H [facility] Rx#: [id number] Heparin Sod,Pork in 0.45% 7.5 2.5 NaCl 25,000 unit In 0.45 % NaCl 1 250ml.bag @ 2.5 mls/hr IV .Q24H [facility] Rx#: [id number] Magnesium Sulfate-D5w Pmx 100 1 gm In Dextrose/Water 1 100ml.bag @ 100 mls/hr IVPB ONCE [facility] Rx#: [id number] Magnesium Sulfate-D5w Pmx 100 1 gm In Dextrose/Water 1 100ml.bag @ 100 mls/hr IVPB Q1H [facility] Rx#: [id number] Potassium Chloride 10 meq 100 In Water For Injection 1 100ml.bag @ 100 mls/hr IVPB Q1H [facility] Rx#: [id number] Sodium Chloride 0.9% 1, 105 385 105 000 ml @ 35 mls/hr IV . Q24H [facility] Rx#:[id number] Sodium Chloride 0.9% 1, 105 385 105 000 ml @ 35 mls/hr IV . Q24H [facility] Rx#:[id number] Sodium Chloride 0.9% 1, 350 105 000 ml @ 35 mls/hr IV . Q24H [facility] Rx#:[id number] Sodium Chloride 0.9% 1, 385 105 000 ml @ Per Protocol IV .Q0M [facility] Rx#:[id number] Sodium Chloride 0.9% 1, 385 105 000 ml @ Per Protocol IV .Q0M [facility] Rx#:[id number] Intake, IV Titration 177.309 Amount Heparin Sod,Pork in 0.45% 177.309 NaCl 25,000 unit In 0.45 % NaCl 1 250ml.bag @ 18 UNITS/KG/HR 18.534 mls/hr IV .[id number] [facility] Rx#: [id number] Output: Urine 0 420 100 Other: Voiding Method External Catheter External Catheter # Voids 0 - Exam PHYSICAL EXAM: VITAL SIGNS: [As above] GENERAL: Alert and oriented x 3, sitting up in bed, no acute distress. HEENT: Normocephalic, atraumatic, conjunctivae normal. eyes normal. NECK: Supple, no JVD. CARDIOVASCULAR: S1, S2 regular. No murmur RESPIRATION: Unlabored, equal air entry,breath sounds diminished in the bases. No rhonchi or crackles. ABDOMEN: Soft, nondistended, nontender . No guarding. Positive bowel sounds heard. LEGS: No edema. no swelling , positive DP pulses. NERVOUS SYSTEM: Cranial N 2-12 grossly normal. No focal deficits. Strength and sensation grossly intact. Skin: Warm and dry, no rash - Labs CBC & Chem 7: 02/29/24 04:03 02/29/24 04:14 Labs: Abnormal Lab Results - Last 24 Hours (Table) 02/28/24 02/28/24 02/28/24 Range/Units 12:38 13:01 15:25 RBC (3.80-5.40) m/uL Hgb (11.4-16.0) gm/dL Plt Count (150-450) k/uL Fibrinogen 523 H (200-500) mg/dL Chloride (98-107) mmol/L Carbon Dioxide (22-30) mmol/L Glucose (74-99) mg/dL POC Glucose (mg/dL) 164 H 166 H (70-110) mg/dL Hemoglobin A1c (<=6.0) % Calcium (8.4-10.2) mg/dL 02/28/24 02/28/24 02/29/24 Range/Units 20:39 23:58 04:03 RBC (3.80-5.40) m/uL Hgb (11.4-16.0) gm/dL Plt Count 138 L (150-450) k/uL Fibrinogen (200-500) mg/dL Chloride (98-107) mmol/L Carbon Dioxide (22-30) mmol/L Glucose (74-99) mg/dL POC Glucose (mg/dL) 204 H (70-110) mg/dL Hemoglobin A1c 7.1 H (<=6.0) % Calcium (8.4-10.2) mg/dL 02/29/24 02/29/24 02/29/24 Range/Units 04:03 04:14 06:05 RBC 3.67 L (3.80-5.40) m/uL Hgb 11.3 L (11.4-16.0) gm/dL Plt Count 127 L (150-450) k/uL Fibrinogen (200-500) mg/dL Chloride 113 H (98-107) mmol/L Carbon Dioxide 19 L (22-30) mmol/L Glucose 145 H (74-99) mg/dL POC Glucose (mg/dL) 172 H (70-110) mg/dL Hemoglobin A1c (<=6.0) % Calcium 7.7 L (8.4-10.2) mg/dL Assessment and Plan Assessment: Submassive bilateral saddle PE ,status post EKOS, thrombolytics. Elevated troponin Lactic acidosis, resolved Acute hypoxic respiratory failure secondary to all the above Left popliteal DVT reported per Doppler Recent left rotator cuff, 11/15/[address] Cano Morbid obesity, BMI 37 Diabetes mellitus II, hemoglobin A1c 7.1 Hypomagnesemia Plan: Continue on current medication regimen ,monitoring and symptomatic treatment. Transitioning to oral anticoagulation with Eliquis this morning as per vascular surgery. Increase activity once patient has completed her 4-hour restrictions of bedrest post sheath removal. Discharge planning in progress for a.m. The impression and plan of care has been dictated as directed. : I performed a history and examination of this patient, discussed the same with the dictator. I agree with the dictator's note ,documented as a scribe. Any additional findings or plans will be noted.
[2024-02-29] MEDS ORDERED: MD COMMUNICATION TO PHARMACY 1 EACH MISC PO SCH (12:00)
--- NOTE | 2024-02-29 12:08 | P.PN ---
Subjective Progress Note Date: 02/29/24 Principal diagnosis: Saddle pulmonary embolism with right heart strain Patient is seen and examined today as a follow-up. She remains in the ICU. This morning her catheters were discontinued and she is removed by nursing. Pressure was held. Patient is continues to lie flat. States breathing is improved. Oxygen saturation is 99% on 2 L nasal cannula, blood pressure 135/79 heart rate 83. She denies any chest pain, breathing is better, no abdominal pain nausea or vomiting. Objective - Vital Signs Vital signs: Vital Signs Temp 98.4 F 02/29/24 08:00 Pulse 87 02/29/24 09:00 Resp 24 02/29/24 09:00 BP 149/83 02/29/24 09:00 Pulse Ox 98 02/29/24 09:00 FiO2 Intake & Output 02/28/24 02/29/24 02/29/24 18:59 06:59 18:59 Intake Total 375.0 2422.309 525 Output Total 0 420 100 Balance 375.0 2002.309 425 Weight 102.965 kg 108.1 kg Intake: IV 375.0 2245.0 525 Alteplase 6 mg In Sodium 75 25 Chloride 0.9% 144 ml @ 1 MG/HR 25 mls/hr IV .Q6H [facility] Rx#:[id number] Alteplase 6 mg In Sodium 75 25 Chloride 0.9% 144 ml @ 1 MG/HR 25 mls/hr IV .Q6H [facility] Rx#:[id number] Heparin Sod,Pork in 0.45% 7.5 2.5 NaCl 25,000 unit In 0.45 % NaCl 1 250ml.bag @ 2.5 mls/hr IV .Q24H [facility] Rx#: [id number] Heparin Sod,Pork in 0.45% 7.5 2.5 NaCl 25,000 unit In 0.45 % NaCl 1 250ml.bag @ 2.5 mls/hr IV .Q24H [facility] Rx#: [id number] Magnesium Sulfate-D5w Pmx 100 1 gm In Dextrose/Water 1 100ml.bag @ 100 mls/hr IVPB ONCE [facility] Rx#: [id number] Magnesium Sulfate-D5w Pmx 100 1 gm In Dextrose/Water 1 100ml.bag @ 100 mls/hr IVPB Q1H [facility] Rx#: [id number] Potassium Chloride 10 meq 100 In Water For Injection 1 100ml.bag @ 100 mls/hr IVPB Q1H [facility] Rx#: [id number] Sodium Chloride 0.9% 1, 105 385 105 000 ml @ 35 mls/hr IV . Q24H [facility] Rx#:[id number] Sodium Chloride 0.9% 1, 105 385 105 000 ml @ 35 mls/hr IV . Q24H [facility] Rx#:[id number] Sodium Chloride 0.9% 1, 350 105 000 ml @ 35 mls/hr IV . Q24H [facility] Rx#:[id number] Sodium Chloride 0.9% 1, 385 105 000 ml @ Per Protocol IV .Q0M [facility] Rx#:[id number] Sodium Chloride 0.9% 1, 385 105 000 ml @ Per Protocol IV .Q0M [facility] Rx#:[id number] Intake, IV Titration 177.309 Amount Heparin Sod,Pork in 0.45% 177.309 NaCl 25,000 unit In 0.45 % NaCl 1 250ml.bag @ 18 UNITS/KG/HR 18.534 mls/hr IV .[id number] [facility] Rx#: [id number] Output: Urine 0 420 100 Other: Voiding Method External Catheter External Catheter # Voids 0 - Exam General appearance: The patient is alert, oriented, appears in no acute distress. HET: Head is normocephalic and atraumatic. Pupils are equal and reactive. Neck: Supple. Heart: Regular. Lungs: Equal expansion, normal respiratory effort. Abdomen: Soft, nontender, nondistended. Extremities: Normal skin color and turgor. Right groin with pressure dressing. Palpable bilateral DP pulses. Neurological: No focal deficits. - Labs CBC & Chem 7: 02/29/24 04:03 02/29/24 04:14 Labs: Abnormal Lab Results - Last 24 Hours (Table) 02/28/24 02/28/24 02/28/24 Range/Units 08:43 12:38 13:01 RBC (3.80-5.40) m/uL Hgb (11.4-16.0) gm/dL Plt Count (150-450) k/uL Fibrinogen 523 H (200-500) mg/dL Chloride 109 H (98-107) mmol/L Carbon Dioxide 16 L (22-30) mmol/L Glucose 261 H (74-99) mg/dL POC Glucose (mg/dL) 164 H (70-110) mg/dL Hemoglobin A1c (<=6.0) % Calcium (8.4-10.2) mg/dL Magnesium 1.5 L (1.6-2.3) mg/dL 02/28/24 02/28/24 02/28/24 Range/Units 15:25 20:39 23:58 RBC (3.80-5.40) m/uL Hgb (11.4-16.0) gm/dL Plt Count 138 L (150-450) k/uL Fibrinogen (200-500) mg/dL Chloride (98-107) mmol/L Carbon Dioxide (22-30) mmol/L Glucose (74-99) mg/dL POC Glucose (mg/dL) 166 H 204 H (70-110) mg/dL Hemoglobin A1c (<=6.0) % Calcium (8.4-10.2) mg/dL Magnesium (1.6-2.3) mg/dL 02/29/24 02/29/24 02/29/24 Range/Units 04:03 04:03 04:14 RBC 3.67 L (3.80-5.40) m/uL Hgb 11.3 L (11.4-16.0) gm/dL Plt Count 127 L (150-450) k/uL Fibrinogen (200-500) mg/dL Chloride 113 H (98-107) mmol/L Carbon Dioxide 19 L (22-30) mmol/L Glucose 145 H (74-99) mg/dL POC Glucose (mg/dL) (70-110) mg/dL Hemoglobin A1c 7.1 H (<=6.0) % Calcium 7.7 L (8.4-10.2) mg/dL Magnesium (1.6-2.3) mg/dL 02/29/24 Range/Units 06:05 RBC (3.80-5.40) m/uL Hgb (11.4-16.0) gm/dL Plt Count (150-450) k/uL Fibrinogen (200-500) mg/dL Chloride (98-107) mmol/L Carbon Dioxide (22-30) mmol/L Glucose (74-99) mg/dL POC Glucose (mg/dL) 172 H (70-110) mg/dL Hemoglobin A1c (<=6.0) % Calcium (8.4-10.2) mg/dL Magnesium (1.6-2.3) mg/dL Assessment and Plan Assessment: 1. Submassive bilateral pulmonary emboli status post pulmonary pharmacomechanical thrombolysis with EKOS 2. Shortness of breath 3. Elevated troponins 4. Diabetes mellitus 5. History of left rotator cuff surgery 11/15/2023 Plan: 1. Continue symptomatic and supportive care 2. Patient may have regular diet 3. Keep supine on bedrest for another 4 hours status post sheath removal 4. Patient transition to Eliquis, prescription sent to pharmacy 5. Patient can be cleared by vascular surgery later today if patien's breathing continues to improve. 6. Defer rest of medical management per primary medical team Thank you for this consultation, we will continue to follow. The impression and plan of care has been dictated as directed. I performed a history and examination of this patient, discussed the same with the dictator. I agree with the dictator's note ,documented as a scribe. Any additional findings or plans will be noted.
[2024-02-29 12:35] LABS: Glucose,Whole Blood 193 mg/dL (70-110)
[2024-02-29] MEDS: ATORVASTATIN 40 MG TAB PO SCH (12:53)
[2024-02-29] MEDS: Apixaban Initiation Dose--VTE 5 MG TAB PO SCH (12:53)
[2024-02-29] MEDS: METOPROLOL TARTRATE 25 MG TAB PO SCH (12:53)
[2024-02-29] MEDS: DAPAGLIFLOZIN PROPANEDIOL 10 MG TABLET PO SCH (12:53)
[2024-02-29] MEDS: metFORMIN 500 MG TAB PO SCH (12:53)
[2024-02-29] MEDS: INSULIN ASPART (NovoLOG) 100 UNIT/ML VIAL SQ SCH (12:54)
[2024-02-29 16:49] LABS: Glucose,Whole Blood 165 mg/dL (70-110)
[2024-02-29 21:16] LABS: Glucose,Whole Blood 139 mg/dL (70-110)
[2024-02-29] MEDS: guaiFENesin-DM 100-10MG/5ML 10 ML CUP PO PRN (21:24)
[2024-03-01 06:17] LABS: HCT 33.8 % (34.0-46.0); MCH 31.2 pg (25.0-35.0); MCHC 32.5 g/dL (31.0-37.0); MCV 95.9 fL (80.0-100.0); Mean Platelet Volume 7.7; Platelet Count 111 k/uL (150-450); RBC 3.53 m/uL (3.80-5.40); RDW 13.9 % (11.5-15.5); WBC 7.9 k/uL (3.8-10.6)
[2024-03-01 06:33] LABS: African American GFR (CKD) >90 (>60 ml/min/1.73 sqM); Anion Gap 6 mmol/L; Blood Urea Nitrogen 11 mg/dL (7-17); Carbon Dioxide 20 mmol/L (22-30); Chloride 115 mmol/L (98-107); Glucose 132 mg/dL (74-99); Magnesium 1.9 mg/dL (1.6-2.3); Non-African American GFR(CKD) >90 (>60 ml/min/1.73 sqM); Sodium 141 mmol/L (137-145)
[2024-03-01 06:50] LABS: Glucose,Whole Blood 147 mg/dL (70-110)
[2024-03-01 09:32] VITALS: BP 127/69; PULSE 74; TEMP 98.2
[2024-03-01] MEDS ORDERED: BENZONATATE 100 MG CAP PO SCH (10:00)
--- NOTE | 2024-03-01 10:58 | P.PN ---
Subjective Progress Note Date: 03/01/24 Patient is a 58-year-old white female with past medical history significant for diabetes mellitus, hypertension, hyperlipidemia, obesity, and recent surgery for rotator cuff repair in October of this year. 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 Starting Monday she started having symptoms, which she originally attributed to a cold. The symptoms included shortness of breath especially on exertion, some nonproductive coughing, and nausea and vomiting. She also had a fever reportedly of 101 F. On Monday, she noted some significant shortness of breath when walking from her bedroom to the back room. She was having some chest pain at this time, so she went to lay down for a couple hours. Symptoms reportedly improved, and she did reportedly return to work the following week. Yesterday, 02/28/2024, she went to work she was feeling very fatigued. She forgot her purse in the car, and went to go get her purse developing some severe shortness of breath and substernal nonradiating chest pain. She states that her heart was racing and she was lightheaded. Did not lose consciousness. She laid on the ground. She did not call 911. She then drove herself to the hospital that morning. On arrival to the emergency room, she was hypoxic on room air and tachycardic. EKG showed sinus tachycardia with a rate of 117 bpm. There was a right bundle branch block. Troponin 0.152. NT proBNP 3270. Initial chest x-ray shows some mild interstitial prominence. No acute infiltrates, pleural effusions, pneumothoraces. Follow-up chest CTA done on admission showed bilateral saddle pulmonary embolism within the main pulmonary arteries with thrombus extending into the lower and upper lobe segmental and subsegmental branches compatible with at least moderate PE burden. There was flattening of the interventricular septum with mild reflux into the inferior vena cava. Right heart strain could not be excluded. Follow-up echocardiogram was technically a difficult study. There was a dilated right ventricle with severe global hypokinesis and moderate pulmonary hypertension as well as moderate tricuspid regurgitation. CBC on arrival was unremarkable. D- dimer was 29. Most recent fibrinogen 432. CMP on arrival: Sodium 138, potassium 3.9, chloride 109, serum bicarb 16, BUN 16, creatinine 0.84, glucose 261. Lactic acid level 2.6 down to 1.9. LFTs not elevated. Normal saline infusing at 35 MLS per hour. She was taken to the [facility] by vascular surgery yesterday, and had an EKOS catheter placed for clot directed thrombolytics. Bilateral sheath access sites without hematomas and now no wheezing. Neurovascular status of bilateral lower extremities intact. Following insertion the patient was transferred to the intensive care unit for monitoring. Patient is currently lying supine in bed, on 2 L/min nasal cannula, in no acute respiratory distress. SpO2 is reading 99%. Blood pressure is normotensive without any vasopressor support. Heart rhythm appears normal sinus on bedside monitor, with a rate ranging from mid 80s to 90s. EKOS catheter still in place. Thrombolytics have finished. There is heparin infusing through catheters for patency. She denies any further shortness of breath, heart palpitations, or chest pain. Denies having any lower extremity swelling prior to this hospitalization. Venous Doppler of bilateral lower extremities did demonstrate a left-sided popliteal vein DVT. Patient admits to recent rotator cuff surgery October of this year. No other precipitating factors such as prolonged travel, trauma, personal or familial history of blood clots. The patient is seen today March 01, 2024 in follow-up in the intensive care unit. She is currently awake and alert in no acute distress. Maintaining good O2 saturations in the 90s on room air. Lung faria are clear. White count 7.9. Hemoglobin 11.0. Platelets 111. Sodium 141. Potassium 4.0. Bicarb 20. BUN 11. Creatinine 0.68. She has been transition to [facility]. Objective - Vital Signs Vital signs: Vital Signs Temp 98.2 F 03/01/24 08:00 Pulse 74 03/01/24 09:00 Resp 4 L 03/01/24 09:00 BP 127/69 03/01/24 09:00 Pulse Ox 97 03/01/24 09:00 FiO2 Intake & Output 02/29/24 03/01/24 03/01/24 18:59 06:59 18:59 Intake Total 1330 885 35 Output Total 280 Balance 1050 885 35 Intake: IV 840 385 35 Sodium Chloride 0.9% 1, 105 000 ml @ 35 mls/hr IV . Q24H [facility] Rx#:[id number] Sodium Chloride 0.9% 1, 105 000 ml @ 35 mls/hr IV . Q24H [facility] Rx#:[id number] Sodium Chloride 0.9% 1, 105 000 ml @ 35 mls/hr IV . Q24H [facility] Rx#:[id number] Sodium Chloride 0.9% 1, 105 000 ml @ Per Protocol IV .Q0M [facility] Rx#:[id number] Sodium Chloride 0.9% 1, 420 385 35 000 ml @ Per Protocol IV .Q0M [facility] Rx#:[id number] Oral 490 500 Output: Urine 280 Other: Voiding Method Toilet Toilet Toilet # Voids 1 1 1 # Bowel Movements 1 1 - Exam GENERAL EXAM: Alert, 58-year-old obese female, on room air, comfortable in no apparent distress. HEAD: Normocephalic and atraumatic EYES: Normal reaction of pupils, equal size. NOSE: Clear with pink turbinates. THROAT: No erythema or exudates. NECK: No masses, no JVD. CHEST: No chest wall deformity. LUNGS: Equal air entry with no crackles, wheeze, rhonchi or dullness. No conversational dyspnea or accessory muscle use. CVS: S1 and S2 normal with no audible murmur, regular rhythm. No extra heart sounds ABDOMEN: No hepatosplenomegaly, active bowel sounds, no guarding or rigidity. SPINE: No scoliosis or deformity SKIN: No rashes CENTRAL NERVOUS SYSTEM: No focal deficits, tone is normal in all 4 extremities. EXTREMITIES: There is no peripheral edema, clubbing, or cyanosis. Peripheral pulses are intact. Bilateral femoral sheath access sites clean. - Labs CBC & Chem 7: 03/01/24 06:01 03/01/24 06:01 Labs: Abnormal Lab Results - Last 24 Hours (Table) 02/29/24 02/29/24 02/29/24 Range/Units 12:34 16:48 21:15 RBC (3.80-5.40) m/uL Hgb (11.4-16.0) gm/dL Hct (34.0-46.0) % Plt Count (150-450) k/uL Chloride (98-107) mmol/L Carbon Dioxide (22-30) mmol/L Glucose (74-99) mg/dL POC Glucose (mg/dL) 193 H 165 H 139 H (70-110) mg/dL Calcium (8.4-10.2) mg/dL 03/01/24 03/01/24 03/01/24 Range/Units 06:01 06:01 06:48 RBC 3.53 L (3.80-5.40) m/uL Hgb 11.0 L (11.4-16.0) gm/dL Hct 33.8 L (34.0-46.0) % Plt Count 111 L (150-450) k/uL Chloride 115 H (98-107) mmol/L Carbon Dioxide 20 L (22-30) mmol/L Glucose 132 H (74-99) mg/dL POC Glucose (mg/dL) 147 H (70-110) mg/dL Calcium 8.0 L (8.4-10.2) mg/dL Assessment and Plan Assessment: Submassive bilateral saddle pulmonary emboli status/post EKOS directed thrombolytics. Chest CTA done on admission showed bilateral saddle pulmonary embolism within the main pulmonary arteries with thrombus extending into the lower and upper lobe segmental and subsegmental branches compatible with at least moderate PE burden. There was flattening of the interventricular septum with mild reflux into the inferior vena cava. There was concern for right-sided heart strain. Followed up with transthoracic echocardiogram. Acute hypoxemic respiratory failure, secondary to above, recovered and on room air Recent history of left rotator cuff repair October,. Noted as possible inciting event. Left popliteal DVT, as noted on venous Doppler History of diabetes mellitus type 2 History of hypertension History of hyperlipidemia Obesity, with a BMI of 36.6 kg/m Never tobacco smoker Plan: The patient was seen and evaluated Labs and medications reviewed Transitioned to [facility] and on room air Home once cleared by vascular surgery I have personally seen and examined the patient, performed the documentation and the assessment and plan as written. Number of minutes spent on the visit: 10.
--- NOTE | 2024-03-01 11:06 | IR ---
EXAMINATION TYPE: IR transcath embolizat therapy Intraoperative/procedural fluoroscopic services were provided. CLINICAL INDICATION:Female, 58 years old with history of SADDLE PE, 6.6m 27.9DAP; , [facility] Total fluoroscopy time is 6.6 min. DAP: 24.8 Gycm2 Please see the operative/procedural note for further details.
[2024-03-01] MEDS: BENZONATATE 100 MG CAP PO PRN (11:48)
[2024-03-01 12:24] VITALS: RESP 24
--- NOTE | 2024-03-01 12:26 | P.PN ---
Subjective Progress Note Date: 03/01/24 Principal diagnosis: Saddle pulmonary embolism with right heart strain Patient is seen and examined today as a follow-up. She remains in the ICU. Patient was cleared for discharge yesterday however requested to stay another day. She states that she had a rough night she has a lot of congestion and was coughing quite a bit. Shortness of breath improved. Oxygen level 95% on room air while walking. Objective - Vital Signs Vital signs: Vital Signs Temp 97.9 F 03/01/24 04:00 Pulse 78 03/01/24 07:00 Resp 19 03/01/24 07:00 BP 121/65 03/01/24 07:00 Pulse Ox 97 03/01/24 07:00 FiO2 Intake & Output 02/29/24 03/01/24 03/01/24 18:59 06:59 18:59 Intake Total 1330 885 35 Output Total 280 Balance 1050 885 35 Intake: IV 840 385 35 Sodium Chloride 0.9% 1, 105 000 ml @ 35 mls/hr IV . Q24H TU Rx#:[id number] Sodium Chloride 0.9% 1, 105 000 ml @ 35 mls/hr IV . Q24H TU Rx#:[id number] Sodium Chloride 0.9% 1, 105 000 ml @ 35 mls/hr IV . Q24H TU Rx#:[id number] Sodium Chloride 0.9% 1, 105 000 ml @ Per Protocol IV .Q0M TU Rx#:[id number] Sodium Chloride 0.9% 1, 420 385 35 000 ml @ Per Protocol IV .Q0M TU Rx#:[id number] Oral 490 500 Output: Urine 280 Other: Voiding Method Toilet Toilet # Voids 1 1 1 # Bowel Movements 1 1 - Exam General appearance: The patient is alert, oriented, appears in no acute distress. HET: Head is normocephalic and atraumatic. Pupils are equal and reactive. Neck: Supple. Heart: Regular. Lungs: Equal expansion, normal respiratory effort. Abdomen: Soft, nontender, nondistended. Extremities: Normal skin color and turgor. Right groin with pressure dressing. Palpable bilateral DP pulses. Neurological: No focal deficits. - Labs CBC & Chem 7: 03/01/24 06:01 03/01/24 06:01 Labs: Abnormal Lab Results - Last 24 Hours (Table) 02/29/24 02/29/24 02/29/24 Range/Units 04:03 12:34 16:48 RBC (3.80-5.40) m/uL Hgb (11.4-16.0) gm/dL Hct (34.0-46.0) % Plt Count (150-450) k/uL Chloride (98-107) mmol/L Carbon Dioxide (22-30) mmol/L Glucose (74-99) mg/dL POC Glucose (mg/dL) 193 H 165 H (70-110) mg/dL Hemoglobin A1c 7.1 H (<=6.0) % Calcium (8.4-10.2) mg/dL 02/29/24 03/01/24 03/01/24 Range/Units 21:15 06:01 06:01 RBC 3.53 L (3.80-5.40) m/uL Hgb 11.0 L (11.4-16.0) gm/dL Hct 33.8 L (34.0-46.0) % Plt Count 111 L (150-450) k/uL Chloride 115 H (98-107) mmol/L Carbon Dioxide 20 L (22-30) mmol/L Glucose 132 H (74-99) mg/dL POC Glucose (mg/dL) 139 H (70-110) mg/dL Hemoglobin A1c (<=6.0) % Calcium 8.0 L (8.4-10.2) mg/dL 03/01/24 Range/Units 06:48 RBC (3.80-5.40) m/uL Hgb (11.4-16.0) gm/dL Hct (34.0-46.0) % Plt Count (150-450) k/uL Chloride (98-107) mmol/L Carbon Dioxide (22-30) mmol/L Glucose (74-99) mg/dL POC Glucose (mg/dL) 147 H (70-110) mg/dL Hemoglobin A1c (<=6.0) % Calcium (8.4-10.2) mg/dL Assessment and Plan Assessment: 1. Submassive bilateral pulmonary emboli status post pulmonary pharmacomechanical thrombolysis with EKOS 2. Shortness of breath 3. Elevated troponins 4. Diabetes mellitus 5. History of left rotator cuff surgery 11/15/2023 6. Cough and congestion, likely respiratory viral infection Plan: 1. Continue symptomatic and supportive care 2. Patient may have regular diet 3. Activity as tolerated 4. Continue with Eliquis as ordered 5. Patient cleared from vascular surgery for discharge Thank you for this consultation, we will sign off at this time. The impression and plan of care has been dictated as directed. Dr. Parrish I performed a history and examination of this patient, discussed the same with the dictator. I agree with the dictator's note ,documented as a scribe. Any additional findings or plans will be noted.
--- NOTE | 2024-03-01 18:54 | P.DS ---
Providers Date of admission: 02/28/24 12:46 Expected date of discharge: 02/23/24 Attending physician: Campbell Scott Consults: 02/28/24 11:15 Consult Physician Urgent Consulting Provider: Huber Culver Consult Reason/Comments: Pulmonary embolism Do you want consulting provider notified?: Already Contacted Consult Physician Urgent Consulting Provider: Candace Mcdonald Consult Reason/Comments: Pulmonary embolism Do you want consulting provider notified?: Already Contacted Primary care physician: Caleb Concepcion Hospital Course: Final Diagnoses: Submassive bilateral saddle PE ,status post EKOS, thrombolytics. Elevated troponin Lactic acidosis, resolved Acute hypoxic respiratory failure secondary to all the above Left popliteal DVT reported per Doppler Recent left rotator cuff, 11/15/[address] Cano Morbid obesity, BMI 37 Diabetes mellitus II, hemoglobin A1c 7.1 Hypomagnesemia supplemented, now WNL. Hospital course:02/28/2024 this is a 58-year-old female with past medical history significant for morbid obesity, recent left rotator cuff surgery with Dr. Cano October, with currently possible frozen shoulder-following closely with Dr. Cano, presented to the ER with complaints of worsening shortness of breath, cough, congestion, diarrhea since Monday. Initially she felt as if she was coming down with the same illness that her coworkers had. Monday symptoms progressed, started having palpitations, increased shortness of breath. Stated she was too weak to call her primary's office to get in for further evaluation. This morning was the first time she felt able to go outside and proceeded to the ER. Denies prolonged travel, trauma or genetic history of clotting disorder. Afebrile, WBC 10.9. Troponin elevated, 0.152 , EKG reported sinus tachycardia, right bundle branch block, T wave abnormalities in, D-dimer elevated 29.8,chest CTA reported saddle embolism noted within the main pulmonary arteries with thrombus extending into the lower and upper lobe segmental and subsegmental branches compatible with at least moderate pulmonary embolism burden. There is flattening of the interventricular septum with mild reflux into the inferior vena cava. Right heart strain cannot be excluded. Echo, venous Doppler ordered. Anticoagulated on heparin drip. Magnesium 1.5, supplements ordered.Lactic acid elevated, 2.6. proBNP 3270. Bicarb 16, BUN 16, creatinine 0.84. Denies history of GI bleed,clotting disorder, prior DVT or PEs. Denies nicotine dependence. On admission tachycardic with heart rate 124, blood pressure stable, O2 sats of high 90s on room air, desatted to low 80s on room air, currently requiring 3 L nasal cannula to maintain O2 sats in the 90s. 02/29/2024 status post EKOS with intravascular thrombolytics, currently in the ICU. Thrombolytics completed, catheters discontinued. denies numbness or tingling of extremities.Maintaining O2 sats in the high 90s on 2 L nasal cannula. Normotensive without pressor support. Hemoglobin 11.3, platelets 127. Venous Doppler reported left-sided popliteal vein DVT suspected. Blood sugars better controlled this morning, hemoglobin A1c 7.1. Afebrile, normal WBC. Denies any chest pain, palpitations or shortness of breath. Magnesium increased to 1.8, post supplementation. transitioning to DOAC this morning as per vascular surgery. Transitioning to oral anticoagulation with Eliquis this morning as per vascular surgery. Increase activity once patient has completed her 4-hour restrictions of bedrest post sheath removal. Discharge planning in progress for a.m. Significant clinical improvement. Transitioned to Eliquis. Hemoglobin 11, platelets 111, electrolytes and renal function stable cleared by vascular surgery for discharge. Ambulated in room. Discussed with RN, to ambulate patient and obtain O2 sat on room air after ambulation. currently sitting up in chair, conversing with no conversational dyspnea. Lungs with equal air entry, clear to auscultation, no dullness. No accessory muscle use. Denies chest pain, palpitations or shortness of breath. Tessalon Perles added for cough. maintaining O2 sats of 96% on room air. Patient will be discharged home today in a stable condition with guarded prognosis pending final DC recommendations and clearance per pulmonary/imaging assistant. The impression and plan of care has been dictated as directed. : I performed a history and examination of this patient, discussed the same with the dictator. I agree with the dictator's note ,documented as a scribe. Any additional findings or plans will be noted. Patient Condition at Discharge: Stable Plan - Discharge Summary Discharge Rx Participant: Yes New Discharge Prescriptions: New Apixaban [Eliquis Starter Pack (for VTE)] 5 - 10 mg PO DIRECTED 30 Days #1 each Pantoprazole Sodium [Protonix] 40 mg PO DAILY #30 tab Benzonatate [Tessalon Perles] 100 mg PO TID PRN #15 capsule PRN Reason: Cough Continue Empagliflozin/Metformin HCl [Synjardy 12.5-500 mg Tablet] 2 tab PO DAILY Atorvastatin [Lipitor] 40 mg PO DAILY Tirzepatide [Mounjaro] 12.5 mg SQ SA Metoprolol Tartrate [Lopressor] 25 mg PO DAILY Discharge Medication List Atorvastatin [Lipitor] 40 mg PO DAILY 11/10/23 [History] Empagliflozin/Metformin HCl [Synjardy 12.5-500 mg Tablet] 2 tab PO DAILY 11/10/23 [History] Tirzepatide [Mounjaro] 12.5 mg SQ SA 11/10/23 [History] Metoprolol Tartrate [Lopressor] 25 mg PO DAILY 02/28/24 [History] Apixaban [Eliquis Starter Pack (for VTE)] 5 - 10 mg PO DIRECTED 30 Days #1 each 02/29/24 [Rx] Pantoprazole Sodium [Protonix] 40 mg PO DAILY #30 tab 02/29/24 [Rx] Benzonatate [Tessalon Perles] 100 mg PO TID PRN #15 capsule 03/01/24 [Rx] Follow up Appointment(s)/Referral(s): Candace Mcdonald DO [STAFF PHYSICIAN] - 03/13/24 11:00 am Caleb Concepcion MD [Primary Care Provider] - 03/05/24 1:30 pm Patient Instructions/Handouts: Pulmonary Embolism (IP) Activity/Diet/Wound Care/Special Instructions: O2 sat on room air after ambulation pending Discharge Disposition: HOME SELF-CARE
--- NOTE | 2024-03-04 11:34 | CDI ---
Documentation Clarification Form Date: 03/04/24 From: Colleen Valdez Admit Date: 02/28/2024 12:46:00 PM Patient Name: Shannan Bautista Visit Number: [id number] Discharge Date: 03/01/2024 01:00:00 PM ATTENTION: The Clinical Documentation Specialists (CDI) and [facility] Coding Staff appreciate your assistance in clarifying documentation. Please respond to the clarification below the line at the bottom and electronically sign. The CDI & [facility] Coding staff will review the response and follow-up if needed. Please note: Queries are made part of the Legal Health Record. If you have any questions, please contact the author of this message via ITS. Dr. Campbell Scott, There is documentation of acute submassive bilateral pulmonary embolism with right heart strain. Additional clarification is requested. History/Risk Factors: DM Type II, pulmonary HTN, HLD, HTN Clinical Indicators: CTA: There is saddle embolism noted within the main pulmonary arteries with thrombus extending into the lower and upper lobe segmental and subsegmental branches compatible with at least moderate PE burden. There is flattening of the interventricular septum with mild reflux into the inferior vena cava. Right heart strain cannot be excluded. Echocardiogram: Definity ECHO contrast used for improved visualization of the endocardial borders (inadequatevisualization of two or more contiguous segments). Normal limits for size and systolic function Dilated right ventriclewith severe global hypokinesis and moderatepulmonary hypertension Moderatetricuspid regurgitation Treatment: #1 Percutaneous ultrasonic fragmentation of bilateral pulmonary embolism #2 Transcatheter therapy of bilateral pulmonary embolism using infusion of TPA Is there an additional diagnosis that is clinically appropriate for this patient? [x ] Pulmonary embolism with acute cor pulmonale [ ] Pulmonary embolism without acute cor pulmonale [ ] Other, please specify [ ] Unable to determine MTDD
== END 2024-03-01 13:00 | disposition home or self-care (01) | DRG 173 ==
LOC: EC 07:46 → 3SCARD 12:46 → 2SICU 14:10
PROVIDERS: ADMIT Family Medicine; ATTEND Family Medicine
PROC: B31T1ZZ Fluoroscopy of Left Pulmonary Artery using Low Osmolar Contrast (ICD-10-PCS; principal; 2024-02-28 11:25)
PROC: B31S1ZZ Fluoroscopy of Right Pulmonary Artery using Low Osmolar Contrast (ICD-10-PCS; principal; 2024-02-28 11:25)
PROC: 3E06317 Introduction of Other Thrombolytic into Central Artery, Percutaneous Approach (ICD-10-PCS; principal; 2024-02-28 11:25)
PROC: 02FQ3Z0 Fragmentation of Right Pulmonary Artery, Percutaneous Approach, Ultrasonic (ICD-10-PCS; principal; 2024-02-28 11:25)
PROC: 02FR3Z0 Fragmentation of Left Pulmonary Artery, Percutaneous Approach, Ultrasonic (ICD-10-PCS; principal; 2024-02-28 11:25)
DX: I26.02 Saddle embolus of pulmonary artery with acute cor pulmonale (principal); J96.01 Acute respiratory failure with hypoxia; I82.432 Acute embolism and thrombosis of left popliteal vein; E87.20 Acidosis, unspecified; I27.20 Pulmonary hypertension, unspecified; E66.01 Morbid (severe) obesity due to excess calories; Z68.38 Body mass index [BMI] 38.0-38.9, adult; E11.9 Type 2 diabetes mellitus without complications; I10 Essential (primary) hypertension; I07.1 Rheumatic tricuspid insufficiency; Z28.311 Partially vaccinated for COVID-19; E83.42 Hypomagnesemia; E86.0 Dehydration; E78.5 Hyperlipidemia, unspecified; J06.9 Acute upper respiratory infection, unspecified; B34.9 Viral infection, unspecified; R79.89 Other specified abnormal findings of blood chemistry; I45.10 Unspecified right bundle-branch block; Z79.85 Long-term (current) use of injectable non-insulin antidiabetic drugs; Z79.84 Long term (current) use of oral hypoglycemic drugs; Z79.899 Other long term (current) drug therapy
CPT/HCPCS: 36415; 37211; 71046; 71275; 75743; 80048; 80053; 83036; 83605; 83735; 83880; 84484; 85025; 85027; 85379; 85384; 85610; 85730; 86850; 86900; 86901; 93005; 93306; 93970; 96361; 96365; 96366; 96375; 99291